=== PATIENT | male | born 1960 | race Caucasian/White ===

== ENCOUNTER 2017-08-27 14:16 | Observation (INO) ==
[2017-08-27 15:24] LABS: Basophils # 0.1 K/mcL (0.0-0.2); Basophils % 1.4 %; Eosinophils # 0.2 K/mcL (0.0-0.6); Hematocrit 35.8 % (37.5-50.1); Hemoglobin 11.1 g/dL (12.9-16.9); Immature Granulocytes % 0.4 % (0-4); Lymphocytes # 0.6 K/mcL (0.6-4.6); Lymphocytes % 11.5 %; Mean Corpuscular Hemoglobin 25.1 pg (28.0-33.3); Mean Platelet Volume 10.2 fL (9.4-12.4); Monocytes # 0.5 K/mcL (0.0-1.3); Monocytes % 10.9 %; Neutrophils # 3.6 K/mcL (1.6-8.9); Platelet Count 117 K/mcL (140-400); Red Blood Count 4.42 M/mcL (4.19-5.50); Red Cell Distribution Width 18.4 % (11.5-14.5); Segmented Neutrophils % 71.8 %
[2017-08-27 15:29] LABS: Prothrombin Time 32.7 Seconds (9.4-12.1)
[2017-08-27 15:32] LABS: Activated Partial Thrombo Time 40.3 Seconds (26.0-36.0)
[2017-08-27 15:41] LABS: Alanine Aminotransferase 14 Units/L (7-52); Albumin 3.8 g/dL (3.5-5.7); Alkaline Phosphatase 137 Units/L (34-104); Aspartate Amino Transferase 23 Units/L (13-39); BUN/Creatinine Ratio 24 (6-26); Bilirubin,Total 1.9 mg/dL (0.3-1.0); Blood Urea Nitrogen 24 mg/dL (6-20); Calcium 8.9 mg/dL (8.6-10.3); Carbon Dioxide 26 mEq/L (23-29); Chloride 103 mEq/L (98-107); Globulin 3.7 g/dL (2.4-3.5); Glucose 273 mg/dL (70-105); Osmolality,Calculated 292 (280-300); Potassium 4.5 mEq/L (3.5-5.1); Sodium 134 mEq/L (136-145); Total Protein 7.5 g/dL (6.4-8.9); eGFR For African Americans > 60 (> 60); eGFR For Non-African Americans > 60 (> 60)
[2017-08-27 15:52] LABS: Bilirubin,Urine Negative (Negative); Blood,Urine Negative (Negative); Clarity,Urine Clear (Clear); Color,Urine Yellow (Yellow); Glucose,Urine (UA) Normal (Normal); Ketones,Urine Negative (Negative); Leukocyte Esterase,Urine Negative (Negative); Nitrite,Urine Negative (Negative); Protein,Urine Negative (Neg-Trace); Specific Gravity,Urine 1.013 (1.010-1.025); Urobilinogen,Urine Normal (Normal)
--- NOTE | 2017-08-27 15:53 | Emergency Department Note ---
Disposition Clinical Impression: Acute retention of urine Ascites Qualifiers: Ascites type: other type Qualified Code(s): R18.8 - Other ascites Abdominal pain Qualifiers: Abdominal location: unspecified location Qualified Code(s): R10.9 - Unspecified abdominal pain Disposition: Admitted As Inpatient Condition: Good Time of Disposition: 19:26 General Adult HPI - General Chief complaint: ED Urogenital-Male Stated complaint: Decreased urine output. Time Seen by Provider: 08/27/17 15:19 Source: patient Limitations: no limitations Nursing Notes Reviewed: Yes Vital Signs Reviewed: Yes - History of Present Illness HPI Narrative: 57-year-old male history of liver cirrhosis, MARK, atrial fibrillation on Coumadin presents an emergency department with abdominal pain, decreased urine output and some shortness of breath. Patient follows gastroenterology previously at [place] and currently at the [facility] with Dr. Alvarado. He is currently not a transplant patient. He is required a paracentesis several months ago. Reports over the past several months his abdomen has been gradually getting larger. He has some associated shortness of breath and reports productive cough. Reports some chest pain. History of CABG x4 with stents, takes Aspirin. Patients currently on Lactulose and Rifaximin. He states every time he urinated she normally has a loose bowel movement because of his diuretic and laxative. He is currently on spironolactone and has noticed decrease urine output over the past 4 to 5 days after being started on Lasix. He denies any fevers. He reports some pressure to his abdomen. Denies any bloody stool, black tarry stool, hemoptysis or hematemesis. He reports a recent colonoscopy and EGD that did not reveal any esophageal varices. Pain Scale: 5 - Related Data Home Medications Medication Instructions Recorded Confirmed Cholestyramine [Cholestyramine] 4 g PO DAILY 08/27/17 08/27/17 Ciprofloxacin HCl [Cipro] 500 mg PO BID 08/27/17 08/27/17 Insulin Glargine,Hum.rec.anlog 30 units SQ HS 08/27/17 08/27/17 [Lantus Solostar] Insulin LISPRO [Humalog] 6 - 12 unit SQ TIDWM 08/27/17 08/27/17 Lactulose 30 ml PO TID PRN 08/27/17 08/27/17 Metoprolol [Lopressor] 12.5 mg PO DAILY 08/27/17 08/27/17 Omeprazole [PriLOSEC] 40 mg PO DAILY 08/27/17 08/27/17 PARoxetine HCl [Paroxetine HCl] 20 mg PO QAM 08/27/17 08/27/17 Rifaximin [Xifaxan] 550 mg PO BID 08/27/17 08/27/17 Trazodone HCl 100 mg PO HS 08/27/17 08/27/17 Warfarin Sodium [Warfarin Sodium] 3 mg PO DAILY 08/27/17 08/27/17 Allergies Allergy/AdvReac Type Severity Reaction Status Date / Time No Known Allergies Allergy Verified 08/27/17 18:24 All systems ED: reviewed and negative except as stated. Review of Systems: As Per HPI Constitutional: Denies: fever, chills ENT ED: Reports: congestion Cardiovascular: Reports: chest pain Respiratory: Reports: cough, dyspnea Gastrointestinal: Reports: abdominal pain, diarrhea. Denies: nausea, vomiting Genitourinary: Reports: urgency. Denies: dysuria, frequency Musculoskeletal: Denies: back pain Past Medical History - Past Medical History Attestation: Yes The following information was validated with the patient. Source: patient Medical history: Reports: cirrhosis, diabetes, GERD, hyperlipidemia, hypertension, myocardial infarction Psychiatric history: Reports: anxiety, depression - Social History Smoking Status: Former smoker Smokeless Tobacco Status: Yes Alcohol use: Reports: none Drug use: Reports: none Physical Exam - General Limitations: no limitations General appearance: alert, in no apparent distress - Head Head exam: atraumatic, normocephalic, normal inspection - Eye Eye exam: Present: normal appearance, PERRL, EOMI, scleral icterus - ENT ENT exam: normal exam, normal oropharynx, mucous membranes moist - Neck Neck exam: Present: normal inspection, full ROM, trachea midline - Chest Chest inspection: Present: normal inspection, symmetric chest wall rise - Respiratory Respiratory exam: Present: normal lung sounds bilaterally - Cardiovascular Cardiovascular exam: Present: regular rate, normal rhythm, normal heart sounds. Absent: systolic murmur, diastolic murmur - Abdominal Exam Abdominal exam: Present: tenderness, distention, ascites (fluid wave). Absent: guarding, rebound, rigidity - Extremities Exam Extremities exam: Present: normal inspection, full ROM, pedal edema (symmetrical ). Absent: tenderness - Neurological Exam Neurological exam: Present: alert, oriented X3 - Psychiatric Psychiatric exam: Present: normal affect, normal mood - Skin Skin exam: Present: warm, dry, intact, other (jaundice). Absent: rash, cyanosis , diaphoresis Course Course Narrative: Patient presents with abdominal distention and decrease urine output. He is reporting some gradual abdominal pressure and tenderness but denies any fevers. His abdomen is distended with diffuse tenderness. He appears jaundic with some sclera ictera. Consideration for spontaneous bacterial peritonitis less likely without fever. His abdomen was much softer after placement of a Reddy catheter. He reports some improvement of his abdominal pressure. He also has chest pain and shortness of breath likely due to distended abdomen. Review of his labs with thrombocytopenia and elevated INR of 3.0 for his warfarin. Consideration for paracentesis however due to coagulopathy will be deferred at this time. Patient is awake alert and oriented. He states he feels a little more confused. He does have some relief after placement of Reddy. His ammonia level was 24. He has not taken any of his lactulose today. His chest x-ray shows some findings with a new pleural effusion on the left. He did report cough but again no fevers. No leukocytosis. Suspect some of his symptoms is purely mechanical but would benefit paracentesis. Impression is abdominal pain, urinary retention, ascites. - Consultations Consultation #1: Patient accepted by on-call hospitalist Dr. Goins for urinary retention, ascites with abdominal pain without fever, shortness of breath and chest pain. Patient has history liver cirrhosis and a distended abdomen. Patient would benefit from paracentesis however his INR is elevated at 3. Patient was given vitamin K to help facilitate with lowering of INR for potential paracentesis. Time: 19:20 Vital Signs Temperature 97.4 F L 08/27/17 14:36 Pulse Rate 77 08/27/17 14:36 Respiratory Rate 22 08/27/17 14:36 Blood Pressure 114/79 08/27/17 14:36 O2 Sat by Pulse Oximetry 93 08/27/17 14:36 Temperature 97.4 F L 08/27/17 14:36 Pulse Rate 75 08/27/17 19:46 Respiratory Rate 20 08/27/17 19:46 Blood Pressure 118/80 08/27/17 19:46 O2 Sat by Pulse Oximetry 95 08/27/17 19:46 Oxygen Delivery Oxygen Delivery Room Air Medical Decision Making - MDM Narrative Medical decision making narrative: Patient was discussed with my attending physician who agrees with ED management and final disposition. They independently evaluated the patient. Please refer to their attestation to this encounter for additional information. This note was generated by [employer] voice recognition software and as a result grammatical or spelling errors may occur using this program. - Medical Records Medical records reviewed: Yes I reviewed the patient's medical records. - Lab Data Lab results reviewed: Yes I reviewed the patient's lab results. Result diagrams: 08/27/17 14:58 08/27/17 14:58 Lab Results 08/27/17 08/27/17 08/27/17 Range/Units 14:58 14:58 14:58 WBC 5.0 (4.3-11.1) K/mcL RBC 4.42 (4.19-5.50) M/mcL Hgb 11.1 L (12.9-16.9) g/dL Hct 35.8 L (37.5-50.1) % MCV 81.0 L (83.0-100.0) fL MCH 25.1 L (28.0-33.3) pg MCHC 31.0 L (31.6-35.5) g/dL RDW 18.4 H (11.5-14.5) % Plt Count 117 L (140-400) K/mcL MPV 10.2 (9.4-12.4) fL Immature Gran % 0.4 (0-4) % Seg Neutrophils % 71.8 % Lymphocytes % 11.5 % Monocytes % 10.9 % Eosinophils % 4.0 % Basophils % 1.4 % Neutrophils # 3.6 (1.6-8.9) K/mcL Lymphocytes # 0.6 (0.6-4.6) K/mcL Monocytes # 0.5 (0.0-1.3) K/mcL Eosinophils # 0.2 (0.0-0.6) K/mcL Basophils # 0.1 (0.0-0.2) K/mcL PT 32.7 H (9.4-12.1) Seconds INR 3.0 APTT 40.3 H (26.0-36.0) Seconds Sodium 134 L (136-145) mEq/L Potassium 4.5 (3.5-5.1) mEq/L Chloride 103 (98-107) mEq/L Carbon Dioxide 26 (23-29) mEq/L BUN 24 H (6-20) mg/dL Creatinine 0.99 (0.70-1.30) mg/dL Est GFR ( Amer) > 60 (> 60) Est GFR (Non-Af Amer) > 60 (> 60) BUN/Creatinine Ratio 24 (6-26) Glucose 273 H (70-105) mg/dL Calculated Osmolality 292 (280-300) Calcium 8.9 (8.6-10.3) mg/dL Total Bilirubin 1.9 H (0.3-1.0) mg/dL AST 23 (13-39) Units/L ALT 14 (7-52) Units/L Alkaline Phosphatase 137 H (34-104) Units/L Ammonia (16-53) mcmol/L Troponin I < 0.03 (< 0.04) ng/mL Serum Total Protein 7.5 (6.4-8.9) g/dL Albumin 3.8 (3.5-5.7) g/dL Globulin 3.7 H (2.4-3.5) g/dL Albumin/Globulin Ratio 1.0 L (1.1-2.2) Urine Color (Yellow) Urine Clarity (Clear) Urine pH (5.0-8.0) pH Units Ur Specific [place] (1.010-1.025) Urine Protein (Neg-Trace) mg/dL Urine Glucose (UA) (Normal) mg/dL Urine Ketones (Negative) mg/dL Urine Blood (Negative) Urine Nitrite (Negative) Urine Bilirubin (Negative) Urine Urobilinogen (Normal) mg/dL Ur Leukocyte Esterase (Negative) Ur Culture Indicated? (NO) 08/27/17 08/27/17 Range/Units 15:39 17:23 WBC (4.3-11.1) K/mcL RBC (4.19-5.50) M/mcL Hgb (12.9-16.9) g/dL Hct (37.5-50.1) % MCV (83.0-100.0) fL MCH (28.0-33.3) pg MCHC (31.6-35.5) g/dL RDW (11.5-14.5) % Plt Count (140-400) K/mcL MPV (9.4-12.4) fL Immature Gran % (0-4) % Seg Neutrophils % % Lymphocytes % % Monocytes % % Eosinophils % % Basophils % % Neutrophils # (1.6-8.9) K/mcL Lymphocytes # (0.6-4.6) K/mcL Monocytes # (0.0-1.3) K/mcL Eosinophils # (0.0-0.6) K/mcL Basophils # (0.0-0.2) K/mcL PT (9.4-12.1) Seconds INR APTT (26.0-36.0) Seconds Sodium (136-145) mEq/L Potassium (3.5-5.1) mEq/L Chloride (98-107) mEq/L Carbon Dioxide (23-29) mEq/L BUN (6-20) mg/dL Creatinine (0.70-1.30) mg/dL Est GFR ( Amer) (> 60) Est GFR (Non-Af Amer) (> 60) BUN/Creatinine Ratio (6-26) Glucose (70-105) mg/dL Calculated Osmolality (280-300) Calcium (8.6-10.3) mg/dL Total Bilirubin (0.3-1.0) mg/dL AST (13-39) Units/L ALT (7-52) Units/L Alkaline Phosphatase (34-104) Units/L Ammonia 24 (16-53) mcmol/L Troponin I (< 0.04) ng/mL Serum Total Protein (6.4-8.9) g/dL Albumin (3.5-5.7) g/dL Globulin (2.4-3.5) g/dL Albumin/Globulin Ratio (1.1-2.2) Urine Color Yellow (Yellow) Urine Clarity Clear (Clear) Urine pH 5.0 (5.0-8.0) pH Units Ur Specific [place] 1.013 (1.010-1.025) Urine Protein Negative (Neg-Trace) mg/dL Urine Glucose (UA) Normal (Normal) mg/dL Urine Ketones Negative (Negative) mg/dL Urine Blood Negative (Negative) Urine Nitrite Negative (Negative) Urine Bilirubin Negative (Negative) Urine Urobilinogen Normal (Normal) mg/dL Ur Leukocyte Esterase Negative (Negative) Ur Culture Indicated? NO (NO) - Radiology Data Radiology results reviewed: Yes I reviewed the patient's radiology results. Chest X-Ray 08/27/17 15:35 IMPRESSION: Right basilar opacity appears similar to prior exam 01/23/2017. This could reflect persistent chronic findings from prior exam with pleural effusion/thickening and atelectasis/scarring or could reflect new acute process with new pleural effusion and atelectasis or infiltrate. Other underlying pathology cannot be excluded. Continued short-term follow-up is recommended and if this persists with appropriate treatment further evaluation with chest CT is recommended. New mild left basilar opacity concerning for small left pleural effusion and associated atelectasis or infiltrate. This can be assessed on follow-up as well. Mild pulmonary vascular congestion without overt pulmonary edema. D/ / 08/27/2017 16:05:50 Emanuel Winston MD / ken Interpreting Provider: Emanuel Winston MD - EKG Data EKG #1 EKG attestation: Yes I reviewed and interpreted this EKG. EKG results narrative: EKG performed 1551 atrial fibrillation 74 beats per minute right axis deviation , right bundle branch block, no ST elevation or depression. Compared to prior EKG performed 06/17/2014 which showed atrial fibrillation. No acute ischemic changes seen. Attestation Statement - Attestation Attestation: I, Wilver Prado, examined this patient and my medical decision-making was reviewed with the TELEMARKETER/PA/Advanced Practice Nurse/Resident Physician. I agree with the documented findings, disposition and treatment plan as described except to the extent set forth below. -year-old male presents emergency Department with concerns of abdominal distention pain. Patient states he has had decreased urinary output over the past 2 days. Patient states he has had urinary decreased urinary output in the past and it was due to infection. Patient denies fever, chills, nausea, vomiting, diarrhea. Patient given Reddy catheter with good output of urine and decrease of abdominal pain. He has a history of MARK and has a significant amount of ascites. Patient states his abdomen is fairly tense causing abdominal pain. He denies recent trauma. He does take Coumadin and has an INR of 3. Patient will likely require a therapeutic abdominal paracentesis. He does not get regular paracenteses performed. Unlikely SBP as he does not have a fever. He does report chest pain and shortness of breath increasing over the past 2-3 days however this is likely secondary to his increased ascites. EKG showed atrial fibrillation with a rate of 74 and a right bundle branch block. Her EKG does Patient was given vitamin K in attempts to decrease his INR and he will be admitted to the hospitalist for further care and evaluation.
[2017-08-27 16:20] LABS: Troponin I < 0.03 ng/mL (< 0.04)
[2017-08-27] MEDS ORDERED: *HR* Phytonadione 5 MG TABLET PO ONE (16:48)
[2017-08-27] MEDS ORDERED: GI Cocktail 40 ML EACH PO ONE (19:57)
[2017-08-27] MEDS ORDERED: Isovue-370 500 ML INFUS..BTL IV ONE (20:15)
[2017-08-27] MEDS ORDERED: Albuterol 2.5 MG/3 ML NEBULIZER IH ONE (20:15)
--- NOTE | 2017-08-27 20:45 | Internal Med History&Physical ---
<Aj Clemens - Last Filed: 08/27/17 21:40> Date of Encounter: 08/27/17 Time of Encounter: 20:05 Internal Medicine - H&P: HPI Chief complaint: trouble urinating Admitted From: Home Plans for Post Hospital Care: Home History of present illness: Mr. Nance is a 57 year old male w/ pmh of MARK/Liver Cirrhosis, CAD w/ CABG in [id number] and 14 [facility]'s with 2 stents, Balanitis xerotica obliterans, penile surgery presents with 2 day hisotry of urinary incontinence and SOB. Patient started having abdominal distension and urine retention last week, on sunday he went to his PCP who diagnosed him with UTI. Patient was started on Cipro. Throughout the weekend the patient has not been able to urinate as well patient started developing worsening SOB and abdominal distension which prompted him to come to the emergency room. In the ED, lutz catheter was placed and patients SOB and abdominal distension improved. Patient states he feels like he has a pinch under his left lower rib cage that is constant and is NOT similar to his previous CAD symptoms. Patient currently denies SOB, other chest pain, nausea, vomiting, confusion, fever, chills. Patient does state his lower extremities feel cold and he's had swelling in his legs recently. 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 He states that out of the 9 members on his team, he is the only one that is currently still alive. Patient retired in 2003, which is when his CAD symptoms first started. He's had CABG at that point, and has since had 14 [facility] with 2 stents. Patients last stent was over a year ago. Patient previously was diagnosed with MARK and liver cirrhosis at the same time around 2003. He is currently not on the transplant list but is being seen at [facility] who is getting patient on the transplant list. Patient denies drug or alcohol use in his life. Patient has had 1 paracentesis back in april. He has off and on confusion, and is on rifaxamin and lactulose. His last bowel movement was an hour ago in [facility] ED. Patient had 1 previous UTI, which lead to local invasion of his prostate. Patient had to have surgery to remove part of his prostate, and he subsequently developed balanitis xerotic obliterans which led him to have surgery to remove parts of his penis. He is followed by Dr. gonzalez. He has not had any UTI issues since. Past Med Surg Social Fam HX - Past Medical History Medical history: cirrhosis, diabetes, GERD, hyperlipidemia, hypertension, myocardial infarction Psychiatric history: anxiety, depression - Social History Smoking Status: Former smoker Smokeless Tobacco Status: Yes Alcohol use: none Drug use: none Internal Medicine - H&P: Meds Cholestyramine [Cholestyramine] 4 g PO DAILY 08/27/17 [History] Ciprofloxacin HCl [Cipro] 500 mg PO BID 08/27/17 [History] Insulin Glargine,Hum.rec.anlog [Lantus Solostar] 30 units SQ HS 08/27/17 [ History] Insulin LISPRO [Humalog] 6 - 12 unit SQ TIDWM 08/27/17 [History] Lactulose 30 ml PO TID PRN 08/27/17 [History] Metoprolol [Lopressor] 12.5 mg PO DAILY 08/27/17 [History] Omeprazole [PriLOSEC] 40 mg PO DAILY 08/27/17 [History] PARoxetine HCl [Paroxetine HCl] 20 mg PO QAM 08/27/17 [History] Rifaximin [Xifaxan] 550 mg PO BID 08/27/17 [History] Trazodone HCl 100 mg PO HS 08/27/17 [History] Warfarin Sodium [Warfarin Sodium] 3 mg PO DAILY 08/27/17 [History] 3 Allergy/AdvReac Type Severity Reaction Status Date / Time No Known Allergies Allergy Verified 08/27/17 18:24 All Systems PM: A 10-system review of systems was performed and is negative for pertinent findings except as documented above in the HPI. - Constitutional Constitutional: no chills, no excessive sweating, no fatigue, no fever(s), no night sweats, no weight gain, no weight loss - EENT Eyes: no change in vision, no discharge, no pain, no photophobia Ears: no ear discharge, no ear pain, no tinnitus Nose, mouth and throat: no dysphagia, no nasal discharge, no neck pain, no sore throat - Cardiovascular Cardiovascular ROS IM: no chest pain, no diaphoresis, no dyspnea, no lightheadedness, no palpitations, no syncope - Respiratory Respiratory: no cough, no dyspnea, no wheezing, no excessive phlegm production - Gastrointestinal Gastrointestinal: bloating, no abdominal pain, no belching, no change in bowel habits, no change in stool character, no coffee ground emesis, no constipation, no diarrhea, no hematemesis, no hematochezia, no melena, no nausea, no vomiting - Musculoskeletal Musculoskeletal ROS IM: no numbness, no tingling - Integumentary Integumentary IM: no rash, no unusual bruising - Neurological Neurological ROS: no confusion, no convulsions, no focal weakness, no numbness, no tingling, no tremor(s) - Hematologic/Lymphatic Hematologic/Lymphatic: no easy bruising - Constitutional Vitals: Temp Pulse Resp BP Pulse Ox 97.4 F L 75 20 118/80 95 08/27/17 14:36 08/27/17 19:46 08/27/17 19:46 08/27/17 19:46 08/27/17 19:46 General appearance: Present: cooperative, A&O X 3, pleasant, no acute distress, answers questions appropriately Exam: Patient is older appearing than age would suggest - Head Head exam: Present: atraumatic, normocephalic - Eye Eye exam: Present: PERRL, conjuntiva pink, sclera anicteric Pupils: Present: PERRL - Neck Neck exam general surgery: Present: supple, trachea midline. Absent: lymphadenopathy - Respiratory Respiratory exam: Absent: accessory muscle use, chest wall tenderness, rales, respiratory distress, rhonchi, wheezes, tachypnea - Cardiovascular Cardiovascular exam: Present: irregular rhythm. Absent: diastolic murmur, gallop, JVD, rubs, +S1, +S2, systolic murmur - GI/Abdominal GI/Abdominal exam: Present: diminished bowel sounds, distended, firm, hepatomegaly (liver is 8 cm below rib cage), hypoactive bowel sounds, normal bowel sounds. Absent: pulsatile mass, rebound, tenderness, no peritoneal signs - Additional comments: clean and healed surgically removed penile organ. - Extremities Exam Extremities exam: Present: pedal edema (1+ BLE), radial pulses palpable and symmetrical. Absent: calf tenderness, cyanotic Additional comments: cold to touch - Neurological Exam Neurological exam: Present: alert, CN II-XII intact, oriented X3, no focal deficits. Absent: altered, pronater drift, facial droop, speech deficit - Skin Skin exam: Present: dry, intact Internal Med - H&P Results - Labs CBC & Chem 7: 08/27/17 14:58 08/27/17 14:58 Labs: Short CBC 08/27/17 Range/Units 14:58 WBC 5.0 (4.3-11.1) K/mcL Hgb 11.1 L (12.9-16.9) g/dL Hct 35.8 L (37.5-50.1) % Plt Count 117 L (140-400) K/mcL Neutrophils # 3.6 (1.6-8.9) K/mcL BMP 08/27/17 14:58 Sodium 134 L Potassium 4.5 Chloride 103 Carbon Dioxide 26 BUN 24 H Creatinine 0.99 Glucose 273 H Calcium 8.9 Cardiac Enzymes 08/27/17 Range/Units 14:58 Troponin I < 0.03 (< 0.04) ng/mL Liver Function 08/27/17 Range/Units 14:58 Total Bilirubin 1.9 H (0.3-1.0) mg/dL AST 23 (13-39) Units/L ALT 14 (7-52) Units/L Alkaline Phosphatase 137 H (34-104) Units/L Albumin 3.8 (3.5-5.7) g/dL Urine 08/27/17 Range/Units 15:39 Urine Color Yellow (Yellow) Urine Clarity Clear (Clear) Urine pH 5.0 (5.0-8.0) pH Units Ur Specific [place] 1.013 (1.010-1.025) Urine Protein Negative (Neg-Trace) mg/dL Urine Glucose (UA) Normal (Normal) mg/dL - Impressions ITS Impressions Chest X-Ray 08/27/17 15:35 IMPRESSION: Right basilar opacity appears similar to prior exam 01/23/2017. This could reflect persistent chronic findings from prior exam with pleural effusion/thickening and atelectasis/scarring or could reflect new acute process with new pleural effusion and atelectasis or infiltrate. Other underlying pathology cannot be excluded. Continued short-term follow-up is recommended and if this persists with appropriate treatment further evaluation with chest CT is recommended. New mild left basilar opacity concerning for small left pleural effusion and associated atelectasis or infiltrate. This can be assessed on follow-up as well. Mild pulmonary vascular congestion without overt pulmonary edema. D/ / 08/27/2017 16:05:50 Emanuel Winston MD / ken Interpreting Provider: Emanuel Winston MD - Assessment and plan (1) Acute retention of urine Current Visit: Yes Status: Acute Assessment and plan: Patient has a history of UTI's with subsequent local infection of Prostate whcih subsequently led him to have Balanitis Xerotica Obliterans and penile organ removal. 2 day hx of urinary retention. Symptoms include SOB, abdominal distension. Symptoms improved after Lutz cath was placed. Patient's U/A was negative in ED, but patient was also treated with Cipro 4 days ago. - Strict I/O - monitor weight - continue lutz management - ct abd/pelvis ordered - urology consulted; Dr Gonzalez who performed the original penectomy was accounting consultant , he recommended that the lutz stay in place until at least sunday, and patient to be started on flomax (2) CAD (coronary artery disease) Current Visit: Yes Status: Acute Assessment and plan: CABG in [id number], 14 [facility]'s w/ 2 stents last over a year ago. Currently asymptomatic, will follow closely and patient will be considered high risk. Qualifiers: Qualified Code(s): I25.10 - Atherosclerotic heart disease of [place] coronary artery without angina pectoris (3) Afib Current Visit: Yes Status: Acute Assessment and plan: currently in afib, most likely secondary to fluid overload. Will treat underlying cause, and continue to closely monitor - continue home Rx for now Qualifiers: Qualified Code(s): I48.91 - Unspecified atrial fibrillation (4) Ascites Current Visit: Yes Status: Acute Assessment and plan: MARK/Liver ascites with history of hepatic encephalopathy. Currently alert and oriented. Ammonia came back WNL, will not use ammonia to follow. AST/ALT not elevated. Patient does have fluid shift on exam. Will continue to follow closely with clinical evaluations. - Clinical serial exams - continue home rifaxamin and lactulose - may need paracentesis during hospitalization but currently not indicated. Qualifiers: Ascites type: other type Qualified Code(s): R18.8 - Other ascites (5) Diabetes Current Visit: Yes Status: Acute Assessment and plan: hold home Rx. started medium SSI. Qualifiers: Qualified Code(s): E11.9 - Type 2 diabetes mellitus without complications; Z79.4 - care home (current) use of insulin (6) Hyperlipidemia Current Visit: Yes Status: Acute Assessment and plan: continue home Rx Qualifiers: Qualified Code(s): E78.5 - Hyperlipidemia, unspecified (7) Chest pain Current Visit: Yes Status: Acute Assessment and plan: chest pain is described as pinch below left rib cage. Pain is dissimilar to previous CAD. Previous CAD was pressure that went from chest up neck and jaw. Due to history, patient will be considered high risk and followed. Qualifiers: Qualified Code(s): R07.9 - Chest pain, unspecified (8) COPD (chronic obstructive pulmonary disease) Current Visit: Yes Status: Acute Assessment and plan: do not believe patient is currently have COPD exacerbation but will provide respiratory support as needed. Qualifiers: Qualified Code(s): J44.9 - Chronic obstructive pulmonary disease, unspecified (9) Hyponatremia Current Visit: Yes Status: Acute Assessment and plan: on admission patient has mild hyponatremia, most likely secondary to diuretic and lactulose use. Will continue to follow. - Time Spent With Patient Total time spent is greater than 50% in coordination of care (as documented) at patient's floor/unit and/or counseling patient: <Nilson Gions P - Last Filed: 08/28/17 05:12> Date of Encounter: 08/27/17 Internal Medicine - H&P: HPI History of present illness: Mr. Nance is a 57 year old male All Systems PM: A 10-system review of systems was performed and is negative for pertinent findings except as documented above in the HPI. - Constitutional Vitals: Temp Pulse Resp BP Pulse Ox 97.6 F 95 20 126/93 98 08/27/17 22:02 08/27/17 22:02 08/27/17 22:02 08/27/17 22:02 08/27/17 23:00 Internal Med - H&P Results - Labs CBC & Chem 7: 08/28/17 03:57 08/28/17 03:57 Labs: Short CBC 08/28/17 Range/Units 03:57 WBC 5.3 (4.3-11.1) K/mcL Hgb 11.4 L (12.9-16.9) g/dL Hct 36.7 L (37.5-50.1) % Plt Count 119 L (140-400) K/mcL Neutrophils # 3.9 (1.6-8.9) K/mcL BMP 08/28/17 03:57 Sodium 137 Potassium 4.2 Chloride 104 Carbon Dioxide 24 BUN 25 H Creatinine 1.03 Glucose 192 H Calcium 9.1 Cardiac Enzymes 08/28/17 Range/Units 03:57 Troponin I < 0.03 (< 0.04) ng/mL Liver Function 08/28/17 Range/Units 03:57 Total Bilirubin 1.9 H (0.3-1.0) mg/dL AST 20 (13-39) Units/L ALT 13 (7-52) Units/L Alkaline Phosphatase 117 H (34-104) Units/L Albumin 3.7 (3.5-5.7) g/dL - Attending Attestation I have seen the patient and performed my own physical examination. I have discussed the case with the resident physician. I agree with the resident physicians plan of care as documented in his history and physical note. Briefly , this is a very pleasant and interesting gentleman who presented to ED with SOB and urinary incontinence/retention. He has a complicated PMH with MARK/ liver cirrhosis, CAD, and BXO s/p penectomy. Last week he had UTI and was placed on Cipro. states that he has a history of prostate abscesses. Lutz was placed in ED with great relief of symptoms. Urology has been consulted tonight and plan was to keep lutz until at least Sunday and start him on flomax. CT abdomen showed moderate ascites and edema. Will add lasix IV 40 mg QD. Monitor strict I&Os and daily weights. We will continue home rifaximin and lactulose. He is feeling better and in no distress at this time. - Assessment and plan (1) Acute retention of urine Current Visit: Yes Status: Acute (2) Ascites Current Visit: Yes Status: Acute Qualifiers: Ascites type: other type Qualified Code(s): R18.8 - Other ascites (3) CAD (coronary artery disease) Current Visit: Yes Status: Acute Qualifiers: Qualified Code(s): I25.10 - Atherosclerotic heart disease of [place] coronary artery without angina pectoris (4) Afib Current Visit: Yes Status: Acute Qualifiers: Qualified Code(s): I48.91 - Unspecified atrial fibrillation (5) Diabetes Current Visit: Yes Status: Acute Qualifiers: Qualified Code(s): E11.9 - Type 2 diabetes mellitus without complications; Z79.4 - terminal worker (current) use of insulin (6) Hyperlipidemia Current Visit: Yes Status: Acute Qualifiers: Qualified Code(s): E78.5 - Hyperlipidemia, unspecified (7) Chest pain Current Visit: Yes Status: Acute Qualifiers: Qualified Code(s): R07.9 - Chest pain, unspecified (8) COPD (chronic obstructive pulmonary disease) Current Visit: Yes Status: Acute Qualifiers: Qualified Code(s): J44.9 - Chronic obstructive pulmonary disease, unspecified (9) Hyponatremia Current Visit: Yes Status: Acute - Time Spent With Patient Total time spent is greater than 50% in coordination of care (as documented) at patient's floor/unit and/or counseling patient:
[2017-08-27] MEDS ORDERED: Naloxone 0.4 MG/ML INJ IVP PRN (21:00)
[2017-08-27] MEDS ORDERED: Lactulose Oral Soln 20 GM/30 ML UDC PO PRN (21:02)
[2017-08-27] MEDS ORDERED: *HR* Dextrose 50 % in Water (Syg) 50 ML SYRINGE IVP PRN (21:04)
[2017-08-27] MEDS ORDERED: Dextrose Gel 15 GM/37.5 ML TUBE PO PRN ×2 (21:04)
[2017-08-27] MEDS ORDERED: D5% in Water 1,000 ML IVC PRN (21:04)
[2017-08-28 04:17] LABS: Basophils # 0.1 K/mcL (0.0-0.2); Basophils % 1.1 %; Eosinophils # 0.2 K/mcL (0.0-0.6); Eosinophils % 2.8 %; Hematocrit 36.7 % (37.5-50.1); Hemoglobin 11.4 g/dL (12.9-16.9); Immature Granulocytes % 0.2 % (0-4); Lymphocytes # 0.7 K/mcL (0.6-4.6); Lymphocytes % 13.1 %; Mean Corpuscular HGB Conc 31.1 g/dL (31.6-35.5); Mean Corpuscular Hemoglobin 25.3 pg (28.0-33.3); Mean Corpuscular Volume 81.6 fL (83.0-100.0); Mean Platelet Volume 9.5 fL (9.4-12.4); Monocytes # 0.5 K/mcL (0.0-1.3); Monocytes % 9.3 %; Neutrophils # 3.9 K/mcL (1.6-8.9); Platelet Count 119 K/mcL (140-400); Red Cell Distribution Width 18.6 % (11.5-14.5); Segmented Neutrophils % 73.5 %
[2017-08-28 04:23] LABS: INR 2.5; Prothrombin Time 27.7 Seconds (9.4-12.1)
[2017-08-28 04:26] LABS: Activated Partial Thrombo Time 37.5 Seconds (26.0-36.0)
[2017-08-28 04:35] LABS: Alanine Aminotransferase 13 Units/L (7-52); Albumin 3.7 g/dL (3.5-5.7); Alkaline Phosphatase 117 Units/L (34-104); Aspartate Amino Transferase 20 Units/L (13-39); BUN/Creatinine Ratio 24 (6-26); Bilirubin,Total 1.9 mg/dL (0.3-1.0); Blood Urea Nitrogen 25 mg/dL (6-20); Calcium 9.1 mg/dL (8.6-10.3); Carbon Dioxide 24 mEq/L (23-29); Chloride 104 mEq/L (98-107); Cholesterol 70 mg/dL (< 200); Globulin 3.8 g/dL (2.4-3.5); Glucose 192 mg/dL (70-105); HDL Cholesterol 23 mg/dL (40-59); LDL Cholesterol,Calculated 35 mg/dL (0-99); Magnesium 1.7 mg/dL (1.6-2.6); Osmolality,Calculated 294 (280-300); Phosphorous 4.5 mg/dL (2.7-4.5); Potassium 4.2 mEq/L (3.5-5.1); Sodium 137 mEq/L (136-145); Total Protein 7.5 g/dL (6.4-8.9); Triglycerides 58 mg/dL (< 150); eGFR For African Americans > 60 (> 60); eGFR For Non-African Americans > 60 (> 60)
[2017-08-28] MEDS ORDERED: Furosemide 40 MG/4 ML VIAL IVP SCH (05:12)
[2017-08-28] MEDS: Insulin LISPRO 300 UNITS/3 ML VIAL SQ SCH ×4 (08:27→21:36)
[2017-08-28] MEDS: Cholestyramine 4 GM POWD.PACK PO SCH (08:27)
--- NOTE | 2017-08-28 09:39 | Electrocardiograph Report ---
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
[2017-08-28] MEDS: Warfarin perPT PO SCH (10:18)
--- NOTE | 2017-08-28 13:35 | Internal Med Progress Note ---
<Serge Duarte - Last Filed: 08/28/17 13:32> Date of Encounter: 08/28/17 Time of Encounter: 13:33 - Assessment and plan (1) Acute retention of urine Current Visit: Yes Status: Acute Assessment and plan: Patient has a history of UTI's with subsequent local infection of Prostate whcih subsequently led him to have Balanitis Xerotica Obliterans and penile organ removal. 2 day hx of urinary retention. Patient has a Reddy catheter in place. Urology consultation and pending evaluation. Continue Flomax. (2) Ascites Current Visit: Yes Status: Acute Assessment and plan: MARK/Liver ascites with history of hepatic encephalopathy. We will reverse INR less than 2 We will perform paracentesis tomorrow. Qualifiers: Ascites type: other type Qualified Code(s): R18.8 - Other ascites (3) CAD (coronary artery disease) Current Visit: Yes Status: Acute Assessment and plan: Patient denies chest pain. Continue metoprolol. Patient is not on statin because of liver disease. We will start him on aspirin. Denies history of bleeding. Qualifiers: Qualified Code(s): I25.10 - Atherosclerotic heart disease of [place] coronary artery without angina pectoris (4) Afib Current Visit: Yes Status: Acute Assessment and plan: currently in afib, stable. - continue home Rx for now Qualifiers: Qualified Code(s): I48.91 - Unspecified atrial fibrillation (5) Diabetes Current Visit: Yes Status: Acute Assessment and plan: Start patient on Levemir 20 units at night. Continue sliding scale insulin. Qualifiers: Diabetes mellitus type: type 2 Diabetes mellitus termite treater insulin use: with [facility] use Diabetes mellitus complication status: with neurologic complications Diabetes mellitus complication detail: with polyneuropathy Qualified Code(s): E11.42 - Type 2 diabetes mellitus with diabetic polyneuropathy; Z79.4 - roasterman (current) use of insulin (6) Hyperlipidemia Current Visit: Yes Status: Acute Assessment and plan: continue home Rx Qualifiers: Qualified Code(s): E78.5 - Hyperlipidemia, unspecified (7) Chest pain Current Visit: Yes Status: Acute Assessment and plan: Resolved. Troponins within normal limits. EKG normal sinus rhythm with no ST-T wave changes. Likely atypical chest pain secondary to abdominal distention from ascites. Qualifiers: Qualified Code(s): R07.9 - Chest pain, unspecified (8) COPD (chronic obstructive pulmonary disease) Current Visit: Yes Status: Chronic Assessment and plan: Not an exacerbation. Qualifiers: COPD type: unspecified COPD Qualified Code(s): J44.9 - Chronic obstructive pulmonary disease, unspecified - Time Spent With Patient Total time spent is greater than 50% in coordination of care (as documented) at patient's floor/unit and/or counseling patient: - Subjective Interval history: Patient reports abdominal distention. He had a small bowel movement this morning. He also reports urinary retention and currently has a Reddy catheter. He reports lower extremity edema. He denies chest pain, shortness of breath, abdominal pain. - Constitutional Vitals: Temp Pulse Resp BP Pulse Ox 98.6 F 72 16 120/81 94 08/28/17 10:57 08/28/17 10:57 08/28/17 10:57 08/28/17 10:57 08/28/17 10:57 General appearance: Present: cooperative, A&O X 3, pleasant, no acute distress, answers questions appropriately - Other Additional findings: General: Pleasant without distress HEENT: Head atraumatic, normocephalic, EOMI, PERRL, neck nontender to palpation , absent lymphadenopathy, Moist Mucous Membranes, absent scleral icterus Heart: Regular rate and rhythm with no murmur, sternal scar status post CABG Lungs: Clear to auscultation bilaterally diminished Abdomen: Soft, distended, diminished bowel sounds. Skin: warm and dry, absent rash Extremities: Bilateral pedal edema asymmetric with more edema on the right. Patient reports this is chronic secondary to removal of saphenous vein for CABG. Neuro: Alert oriented 3 Vascular: Pedal and radial pulses 2 out of 4 Internal Medicine: Result - Labs CBC & Chem 7: 08/28/17 03:57 08/28/17 03:57 Labs: Short CBC 08/28/17 Range/Units 03:57 WBC 5.3 (4.3-11.1) K/mcL Hgb 11.4 L (12.9-16.9) g/dL Hct 36.7 L (37.5-50.1) % Plt Count 119 L (140-400) K/mcL Neutrophils # 3.9 (1.6-8.9) K/mcL BMP 08/28/17 03:57 Sodium 137 Potassium 4.2 Chloride 104 Carbon Dioxide 24 BUN 25 H Creatinine 1.03 Glucose 192 H Calcium 9.1 Cardiac Enzymes 08/28/17 Range/Units 03:57 Troponin I < 0.03 (< 0.04) ng/mL Liver Function 08/28/17 Range/Units 03:57 Total Bilirubin 1.9 H (0.3-1.0) mg/dL AST 20 (13-39) Units/L ALT 13 (7-52) Units/L Alkaline Phosphatase 117 H (34-104) Units/L Albumin 3.7 (3.5-5.7) g/dL - ABG Interpretation ABG results: PT/INR, D-dimer PT 27.7 Seconds (9.4-12.1) H 08/28/17 03:57 Consult Discharge Plan - Plan Referrals: Dangelo Copeland Jr, MD [Primary Care Provider] - <Pritesh Albright H - Last Filed: 08/28/17 15:57> Date of Encounter: 08/28/17 - Assessment and plan (1) Acute retention of urine Current Visit: Yes Status: Acute (2) Ascites Current Visit: Yes Status: Acute Qualifiers: Ascites type: other type Qualified Code(s): R18.8 - Other ascites (3) CAD (coronary artery disease) Current Visit: Yes Status: Acute Qualifiers: Qualified Code(s): I25.10 - Atherosclerotic heart disease of [place] coronary artery without angina pectoris (4) Afib Current Visit: Yes Status: Acute Qualifiers: Qualified Code(s): I48.91 - Unspecified atrial fibrillation (5) Diabetes Current Visit: Yes Status: Acute Qualifiers: Diabetes mellitus type: type 2 Diabetes mellitus [facility] insulin use: with termite treater use Diabetes mellitus complication status: with neurologic complications Diabetes mellitus complication detail: with polyneuropathy Qualified Code(s): E11.42 - Type 2 diabetes mellitus with diabetic polyneuropathy; Z79.4 - intermediate (current) use of insulin (6) Hyperlipidemia Current Visit: Yes Status: Acute Qualifiers: Qualified Code(s): E78.5 - Hyperlipidemia, unspecified (7) Chest pain Current Visit: Yes Status: Acute Qualifiers: Qualified Code(s): R07.9 - Chest pain, unspecified (8) COPD (chronic obstructive pulmonary disease) Current Visit: Yes Status: Chronic Qualifiers: COPD type: unspecified COPD Qualified Code(s): J44.9 - Chronic obstructive pulmonary disease, unspecified - Time Spent With Patient Total time spent is greater than 50% in coordination of care (as documented) at patient's floor/unit and/or counseling patient: - Constitutional Vitals: Temp Pulse Resp BP Pulse Ox 98.6 F 72 16 120/81 94 08/28/17 10:57 08/28/17 10:57 08/28/17 10:57 08/28/17 10:57 08/28/17 10:57 Internal Medicine: Result - Labs CBC & Chem 7: 08/28/17 03:57 08/28/17 03:57 Labs: Short CBC 08/28/17 Range/Units 03:57 WBC 5.3 (4.3-11.1) K/mcL Hgb 11.4 L (12.9-16.9) g/dL Hct 36.7 L (37.5-50.1) % Plt Count 119 L (140-400) K/mcL Neutrophils # 3.9 (1.6-8.9) K/mcL BMP 08/28/17 03:57 Sodium 137 Potassium 4.2 Chloride 104 Carbon Dioxide 24 BUN 25 H Creatinine 1.03 Glucose 192 H Calcium 9.1 Cardiac Enzymes 08/28/17 Range/Units 03:57 Troponin I < 0.03 (< 0.04) ng/mL Liver Function 08/28/17 Range/Units 03:57 Total Bilirubin 1.9 H (0.3-1.0) mg/dL AST 20 (13-39) Units/L ALT 13 (7-52) Units/L Alkaline Phosphatase 117 H (34-104) Units/L Albumin 3.7 (3.5-5.7) g/dL - ABG Interpretation ABG results: PT/INR, D-dimer PT 27.7 Seconds (9.4-12.1) H 08/28/17 03:57 - Attending Attestation respiratory distress due to volume overload from severe ascites and right moderate size pleural effusion Lasix IV paracentesis urinary retention , Reddy I examined this patient and my medical decision-making was reviewed with the Resident Physician. I agree with the documented findings, disposition and treatment plan as described except to the extent set forth below.
--- NOTE | 2017-08-28 16:43 | Urology - Consult Note ---
Date of Encounter: 08/28/17 Time of Encounter: 16:41 - Assessment and Plan (1) Acute retention of urine Current Visit: Yes Status: Acute Assessment and plan: Multiple potential etiologies for the urinary retention including bladder outlet obstruction and neurogenic bladder. I recommend starting tamsulosin which will help patient if this is outlet obstruction. Catheter needs to remain in place for at least 1 week. Ok to discharge with the cath in place. I recommend follow-up in the urology office on Sunday for attempt at voiding trial. If he fails the voiding trial, we will proceed with further workup for a outlet obstruction versus neurogenic bladder. All questions answered. Urology CN:HPI Consult date: 08/28/17 Reason for consult Urology: Other History of present illness: Patient known to the urology service. Last seen a few years ago. Multiple medical issues including liver cirrhosis. Has had symptoms of increasing pelvic pressure, urgency, frequency over the last few days. He was treated for possible UTI but Antibiotics ineffective. Catheter placed on admission to the hospital with return of 800 mL of urine. Significant relief of symptoms. States he feels much better at this time. Significant urology history includes severe BX0 requiring dorsal slit in the office. He has adhesions of the residual skin to his glans but the meatus remained open. Also has a history of a prostate abscess that required unroofing in the past. Past Med Surg Social Fam HX - Past Medical History Medical history: cirrhosis, diabetes, GERD, hyperlipidemia, hypertension, myocardial infarction Psychiatric history: anxiety, depression - Past Surgical History Surgical History: appendectomy, cholecystectomy, coronary bypass (CABG), prostatectomy - Social History Smoking Status: Former smoker Smokeless Tobacco Status: Yes Alcohol use: none Drug use: none - Family History Father Hx Family Cardiac Disorders: Yes Mother Hx Family Cancer: Yes Medications and Allergies Cholestyramine [Cholestyramine] 4 g PO DAILY 08/27/17 [History] Ciprofloxacin HCl [Cipro] 500 mg PO BID 08/27/17 [History] Insulin Glargine,Hum.rec.anlog [Lantus Solostar] 30 units SQ HS 08/27/17 [ History] Insulin LISPRO [Humalog] 6 - 12 unit SQ TIDWM 08/27/17 [History] Lactulose 30 ml PO TID PRN 08/27/17 [History] Metoprolol [Lopressor] 12.5 mg PO DAILY 08/27/17 [History] Omeprazole [PriLOSEC] 40 mg PO DAILY 08/27/17 [History] PARoxetine HCl [Paroxetine HCl] 20 mg PO QAM 08/27/17 [History] Rifaximin [Xifaxan] 550 mg PO BID 08/27/17 [History] Trazodone HCl 100 mg PO HS 08/27/17 [History] Warfarin Sodium [Warfarin Sodium] 3 mg PO DAILY 08/27/17 [History] Spironolactone [Aldactone] 100 mg PO DAILY 08/28/17 [History] 3 Allergy/AdvReac Type Severity Reaction Status Date / Time No Known Allergies Allergy Verified 08/27/17 18:24 Review of Systems - Constitutional fatigue, malaise, no chills, no fever(s) - EENT Nose, mouth and throat: dizziness - Cardiovascular no chest pain - Respiratory no cough - Gastrointestinal abdominal pain, nausea - Genitourinary difficulty urinating - Musculoskeletal back pain - Integumentary unusual bruising - Neurological no confusion - Psychiatric no anxiety - Hematologic/Lymphatic easy bleeding - Allergic/Immunologic no throat swelling Exam Initial Vital Signs Temp Pulse Resp BP Pulse Ox 97.4 F L 77 22 114/79 93 08/27/17 14:36 08/27/17 14:36 08/27/17 14:36 08/27/17 14:36 08/27/17 14:36 - General physical appearance Present: no distress, chronically ill - Eyes Present: PERRL, conjunctiva is clear - ENT Present: normal nares, no hearing loss - Neck Present: no masses, no lymphadenopathy - Respiratory Present: normal respiratory effort - Cardiovascular Cardiovascular exam IM: RRR - Abdomen Abdomen: Present: soft, distended. Absent: masses, suprapubic tenderness - Integumentary Present: erythema - Neurologic Absent: disoriented, confused - Additional Findings Able to visualize urethral meatus but glans is mostly covered by lateral shaft skin with significant adhesions to the side of the glans. 14-[place] Reddy catheter draining clear urine Urology Results - Labs 08/28/17 03:57 08/28/17 03:57 Abnormal lab results Hgb 11.4 g/dL (12.9-16.9) L 08/28/17 03:57 Hct 36.7 % (37.5-50.1) L 08/28/17 03:57 MCV 81.6 fL (83.0-100.0) L 08/28/17 03:57 MCH 25.3 pg (28.0-33.3) L 08/28/17 03:57 MCHC 31.1 g/dL (31.6-35.5) L 08/28/17 03:57 RDW 18.6 % (11.5-14.5) H 08/28/17 03:57 Plt Count 119 K/mcL (140-400) L 08/28/17 03:57 PT 27.7 Seconds (9.4-12.1) H 08/28/17 03:57 APTT 37.5 Seconds (26.0-36.0) H 08/28/17 03:57 BUN 25 mg/dL (6-20) H 08/28/17 03:57 Glucose 192 mg/dL (70-105) H 08/28/17 03:57 Total Bilirubin 1.9 mg/dL (0.3-1.0) H 08/28/17 03:57 Alkaline Phosphatase 117 Units/L (34-104) H 08/28/17 03:57 Globulin 3.8 g/dL (2.4-3.5) H 08/28/17 03:57 Albumin/Globulin Ratio 1.0 (1.1-2.2) L 08/28/17 03:57 HDL Cholesterol 23 mg/dL (40-59) L 08/28/17 03:57 Diabetes panel 08/28/17 Range/Units 03:57 Sodium 137 (136-145) mEq/L Potassium 4.2 (3.5-5.1) mEq/L Chloride 104 (98-107) mEq/L Carbon Dioxide 24 (23-29) mEq/L BUN 25 H (6-20) mg/dL Creatinine 1.03 (0.70-1.30) mg/dL Glucose 192 H (70-105) mg/dL Calcium 9.1 (8.6-10.3) mg/dL AST 20 (13-39) Units/L ALT 13 (7-52) Units/L Alkaline Phosphatase 117 H (34-104) Units/L Albumin 3.7 (3.5-5.7) g/dL Triglycerides 58 (< 150) mg/dL HDL Cholesterol 23 L (40-59) mg/dL Calcium panel 08/28/17 Range/Units 03:57 Calcium 9.1 (8.6-10.3) mg/dL Phosphorus 4.5 (2.7-4.5) mg/dL Albumin 3.7 (3.5-5.7) g/dL Pituitary panel 08/28/17 Range/Units 03:57 Sodium 137 (136-145) mEq/L Potassium 4.2 (3.5-5.1) mEq/L Chloride 104 (98-107) mEq/L Carbon Dioxide 24 (23-29) mEq/L BUN 25 H (6-20) mg/dL Creatinine 1.03 (0.70-1.30) mg/dL Glucose 192 H (70-105) mg/dL Calcium 9.1 (8.6-10.3) mg/dL Adrenal panel 08/28/17 Range/Units 03:57 Sodium 137 (136-145) mEq/L Potassium 4.2 (3.5-5.1) mEq/L Chloride 104 (98-107) mEq/L Carbon Dioxide 24 (23-29) mEq/L BUN 25 H (6-20) mg/dL Creatinine 1.03 (0.70-1.30) mg/dL Glucose 192 H (70-105) mg/dL Calcium 9.1 (8.6-10.3) mg/dL Total Bilirubin 1.9 H (0.3-1.0) mg/dL AST 20 (13-39) Units/L ALT 13 (7-52) Units/L Alkaline Phosphatase 117 H (34-104) Units/L Albumin 3.7 (3.5-5.7) g/dL All other labs normal. Consult Discharge Plan - Plan Referrals: Dangelo Copeland Jr, MD [Primary Care Provider] -
[2017-08-28] MEDS: Furosemide 40 MG/4 ML VIAL IVP SCH (18:06)
[2017-08-28] MEDS: traZODone 50 MG TABLET PO SCH (21:35)
[2017-08-28] MEDS: Insulin DETEMIR 100 UNIT/ML X5UNITS SQ SCH (21:36)
[2017-08-29 04:18] LABS: Basophils # 0.1 K/mcL (0.0-0.2); Basophils % 1.3 %; Eosinophils # 0.3 K/mcL (0.0-0.6); Eosinophils % 4.6 %; Hematocrit 31.3 % (37.5-50.1); Hemoglobin 10.1 g/dL (12.9-16.9); Immature Granulocytes % 0.2 % (0-4); Lymphocytes # 0.7 K/mcL (0.6-4.6); Lymphocytes % 12.6 %; Mean Corpuscular HGB Conc 32.3 g/dL (31.6-35.5); Mean Corpuscular Hemoglobin 26.1 pg (28.0-33.3); Mean Corpuscular Volume 80.9 fL (83.0-100.0); Mean Platelet Volume 9.7 fL (9.4-12.4); Monocytes # 0.6 K/mcL (0.0-1.3); Monocytes % 11.3 %; Neutrophils # 3.8 K/mcL (1.6-8.9); Nucleated Red Blood Cells 0.4 /100 WBC (0); Platelet Count 110 K/mcL (140-400); Red Blood Count 3.87 M/mcL (4.19-5.50); Red Cell Distribution Width 18.2 % (11.5-14.5)
[2017-08-29 04:22] LABS: INR 1.9; Prothrombin Time 20.7 Seconds (9.4-12.1)
[2017-08-29 04:33] LABS: BUN/Creatinine Ratio 26 (6-26); Blood Urea Nitrogen 27 mg/dL (6-20); Calcium 8.7 mg/dL (8.6-10.3); Carbon Dioxide 25 mEq/L (23-29); Chloride 104 mEq/L (98-107); Glucose 117 mg/dL (70-105); Osmolality,Calculated 286 (280-300); Potassium 4.2 mEq/L (3.5-5.1); Sodium 135 mEq/L (136-145); eGFR For African Americans > 60 (> 60); eGFR For Non-African Americans > 60 (> 60)
[2017-08-29] MEDS: Furosemide 40 MG/4 ML VIAL IVP SCH ×2 (09:18→17:19)
[2017-08-29] MEDS: Insulin LISPRO 300 UNITS/3 ML VIAL SQ SCH ×4 (09:18→22:00)
[2017-08-29] MEDS: Aspirin 81 MG TAB.CHEW PO SCH (09:20)
[2017-08-29] MEDS ORDERED: Warfarin perPT PO PRN (09:30)
--- NOTE | 2017-08-29 09:30 | Internal Med Progress Note ---
<Serge Duarte - Last Filed: 08/29/17 09:28> Date of Encounter: 08/29/17 Time of Encounter: 09:29 - Assessment and plan (1) Ascites Current Visit: Yes Status: Acute Assessment and plan: MARK/Liver ascites with history of hepatic encephalopathy. INR 1.9 jparacentesis today no signs of SBP afebrile will d/c antibiotics. continue spironolactone and lasix. 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 2 day hx of urinary retention. Urology recommended leaving Reddy catheter in place until next Sunday when he will follow-up with urology outpatient (3) CAD (coronary artery disease) Current Visit: Yes Status: Chronic Assessment and plan: Patient denies chest pain. Continue metoprolol. Patient is not on statin because of liver disease. continue aspirin Denies history of bleeding. Qualifiers: Coronary Disease-Associated Artery/Lesion type: bypass graft [place] vs. transplanted heart: [place] heart Associated angina: without angina Qualified Code(s): I25.810 - Atherosclerosis of coronary artery bypass graft(s) without angina pectoris (4) Afib Current Visit: Yes Status: Chronic Assessment and plan: currently in afib, stable. - continue home Rx for now Qualifiers: Atrial fibrillation type: chronic Qualified Code(s): I48.2 - Chronic atrial fibrillation (5) Diabetes Current Visit: Yes Status: Chronic Assessment and plan: continue levmir cardiac ada diet Continue sliding scale insulin. Qualifiers: Diabetes mellitus type: type 2 Diabetes mellitus correction insulin use: with middle or intermediate school principal use Diabetes mellitus complication status: with neurologic complications Diabetes mellitus complication detail: with polyneuropathy Qualified Code(s): E11.42 - Type 2 diabetes mellitus with diabetic polyneuropathy; Z79.4 - watermaster (current) use of insulin (6) Hyperlipidemia Current Visit: Yes Status: Chronic Assessment and plan: continue home Rx Qualifiers: Qualified Code(s): E78.5 - Hyperlipidemia, unspecified (7) Chest pain Current Visit: Yes Status: Resolved Assessment and plan: Resolved. Troponins within normal limits. EKG normal sinus rhythm with no ST-T wave changes. Likely atypical chest pain secondary to abdominal distention from ascites. will obtain echocardiogram. Qualifiers: Qualified Code(s): R07.9 - Chest pain, unspecified (8) COPD (chronic obstructive pulmonary disease) Current Visit: Yes Status: Chronic Assessment and plan: Not an exacerbation. Qualifiers: COPD type: unspecified COPD Qualified Code(s): J44.9 - Chronic obstructive pulmonary disease, unspecified (9) Acute respiratory failure with hypoxia Current Visit: Yes Status: Acute Assessment and plan: 2nd to fluid overload in setting of cirrhosis continue supplemental O2, diuretics - Time Spent With Patient Total time spent is greater than 50% in coordination of care (as documented) at patient's floor/unit and/or counseling patient: - Subjective Interval history: Patient's abdomen is still distended unchanged from yesterday. He has good output per Reddy. He reports his shortness of breath is stable but has not improved. He is requiring oxygen still which she does not use at home. He denies chest pain. - Constitutional Vitals: Temp Pulse Resp BP Pulse Ox 97.8 F 72 18 111/86 97 08/29/17 07:00 08/29/17 07:00 08/29/17 07:00 08/29/17 07:00 08/29/17 07:00 General appearance: Present: cooperative, A&O X 3, pleasant, no acute distress, answers questions appropriately - Other Additional findings: General: Pleasant without distress HEENT: Head atraumatic, normocephalic, EOMI, PERRL, neck nontender to palpation , absent lymphadenopathy, Moist Mucous Membranes, absent scleral icterus Heart: Regular rate and rhythm with no murmur, sternal scar status post CABG Lungs: Clear to auscultation bilaterally diminished Abdomen: Soft, distended, diminished bowel sounds. Skin: warm and dry, absent rash Extremities: Bilateral pedal edema asymmetric with more edema on the right. Patient reports this is chronic secondary to removal of saphenous vein for CABG. Neuro: Alert oriented 3 Vascular: Pedal and radial pulses 2 out of 4 Internal Medicine: Result - Labs CBC & Chem 7: 08/29/17 03:39 08/29/17 03:39 Labs: Short CBC 08/29/17 Range/Units 03:39 WBC 5.4 (4.3-11.1) K/mcL Hgb 10.1 L (12.9-16.9) g/dL Hct 31.3 L (37.5-50.1) % Plt Count 110 L (140-400) K/mcL Neutrophils # 3.8 (1.6-8.9) K/mcL BMP 08/29/17 03:39 Sodium 135 L Potassium 4.2 Chloride 104 Carbon Dioxide 25 BUN 27 H Creatinine 1.05 Glucose 117 H Calcium 8.7 - ABG Interpretation ABG results: PT/INR, D-dimer PT 20.7 Seconds (9.4-12.1) H 08/29/17 03:39 Consult Discharge Plan - Plan Referrals: Dangelo Copeland Jr, MD [Primary Care Provider] - <Pritesh Albright H - Last Filed: 08/29/17 13:00> Date of Encounter: 08/29/17 - Assessment and plan (1) Acute retention of urine Current Visit: Yes Status: Acute (2) Ascites Current Visit: Yes Status: Acute Qualifiers: Ascites type: other type Qualified Code(s): R18.8 - Other ascites (3) CAD (coronary artery disease) Current Visit: Yes Status: Chronic Qualifiers: Coronary Disease-Associated Artery/Lesion type: bypass graft [place] vs. transplanted heart: [place] heart Associated angina: without angina Qualified Code(s): I25.810 - Atherosclerosis of coronary artery bypass graft(s) without angina pectoris (4) Afib Current Visit: Yes Status: Chronic Qualifiers: Atrial fibrillation type: chronic Qualified Code(s): I48.2 - Chronic atrial fibrillation (5) Diabetes Current Visit: Yes Status: Chronic Qualifiers: Diabetes mellitus type: type 2 Diabetes mellitus correction insulin use: with correction use Diabetes mellitus complication status: with neurologic complications Diabetes mellitus complication detail: with polyneuropathy Qualified Code(s): E11.42 - Type 2 diabetes mellitus with diabetic polyneuropathy; Z79.4 - watermaster (current) use of insulin (6) Hyperlipidemia Current Visit: Yes Status: Chronic Qualifiers: Qualified Code(s): E78.5 - Hyperlipidemia, unspecified (7) Chest pain Current Visit: Yes Status: Resolved Qualifiers: Qualified Code(s): R07.9 - Chest pain, unspecified (8) COPD (chronic obstructive pulmonary disease) Current Visit: Yes Status: Chronic Qualifiers: COPD type: unspecified COPD Qualified Code(s): J44.9 - Chronic obstructive pulmonary disease, unspecified (9) Acute respiratory failure with hypoxia Current Visit: Yes Status: Acute - Time Spent With Patient Total time spent is greater than 50% in coordination of care (as documented) at patient's floor/unit and/or counseling patient: - Constitutional Vitals: Temp Pulse Resp BP Pulse Ox 98.3 F 71 18 112/84 95 08/29/17 11:00 08/29/17 11:00 08/29/17 11:00 08/29/17 11:00 08/29/17 11:00 Internal Medicine: Result - Labs CBC & Chem 7: 08/29/17 03:39 08/29/17 03:39 Labs: Short CBC 08/29/17 Range/Units 03:39 WBC 5.4 (4.3-11.1) K/mcL Hgb 10.1 L (12.9-16.9) g/dL Hct 31.3 L (37.5-50.1) % Plt Count 110 L (140-400) K/mcL Neutrophils # 3.8 (1.6-8.9) K/mcL BMP 08/29/17 03:39 Sodium 135 L Potassium 4.2 Chloride 104 Carbon Dioxide 25 BUN 27 H Creatinine 1.05 Glucose 117 H Calcium 8.7 - ABG Interpretation ABG results: PT/INR, D-dimer PT 20.7 Seconds (9.4-12.1) H 08/29/17 03:39 - Attending Attestation Acute hypoxic respiratory failure due to volume overload from severe ascites and right moderate size pleural effusion Lasix 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 I agree with the documented findings, disposition and treatment plan as described except to the extent set forth below.
[2017-08-29] MEDS: Warfarin perPT PO SCH (09:31)
[2017-08-29] MEDS: Cholestyramine 4 GM POWD.PACK PO SCH (09:32)
[2017-08-29] MEDS ORDERED: Albumin 25% 25gram/100mL 25 GM/100 ML IV.SOLN IVPB ONE (16:52)
--- NOTE | 2017-08-29 17:00 | Procedure Note ---
Date of procedure: 08/29/17 Pre-op diagnosis: Ascites Post-op diagnosis: same Procedure: Paracentesis Procedure Note INDICATION: Ascites PROCEDURE PUPPY TRAINER: Ryley Padron DO Supervising PHYSICIAN: Manohar Addison DO In Attendance Ultrasound used to boo location: Yes CONSENT: Written consent in chart PROCEDURE SUMMARY: The area was cleansed and draped in usual sterile fashion using chlorhexidine scrub. Anesthesia was achieved locally. The left lower quadrant of the abdomen at the mid-axillary line was prepped and draped in a sterile fashion using chloroprep. A total of 7mL 1% lidocaine was used to numb the skin, soft tissue and peritoneum. The paracentesis catheter was inserted and advanced with negative pressure until clear yellow colored fluid was aspirated. Catheter was advanced and suction was attempted without success. The catheter was removed, New catheter was inserted at the same location with no additional lidocaine until clear yellow fluid was again drawn, and the catheter was again advanced as the needle was removed. The catheter was then connected to the vaccutainer and 5400mL of ascitic fluid were drained. The catheter was removed and minimal leaking was noted. Sterile guaze was applied with pressure bandage to the site of catheter insertion. The patient tolerated the procedure well without any immediate complications. Estimated blood loss was 0mL. Anesthesia: local Surgeon: Ryley Padron Was there an assistant quality manager present: Yes Keypuncher: Manohar dAdison Estimated blood loss (cc): 0 Specimen: Ascitic fluid sent for cell count Pathology: other (Ascitic fluid for cell count sent with nurse) Condition: stable Disposition: floor
[2017-08-29] MEDS: *HR* Warfarin 3 MG TABLET PO SCH (17:19)
[2017-08-29] MEDS: traZODone 50 MG TABLET PO SCH (21:21)
[2017-08-29] MEDS: Insulin DETEMIR 100 UNIT/ML X5UNITS SQ SCH (21:22)
[2017-08-29 21:56] LABS: RBC,Peritoneal Fluid < 0.002 M/mcL
[2017-08-29 23:38] LABS: Appearance of Peritoneal Fl CLEAR (Clear)
[2017-08-30 05:54] LABS: Basophils # 0.1 K/mcL (0.0-0.2); Basophils % 1.1 %; INR 1.8; Immature Platelets 2.8 % (1.1-6.1); Mean Corpuscular Volume 80.1 fL (83.0-100.0); Prothrombin Time 19.1 Seconds (9.4-12.1)
[2017-08-30 06:06] LABS: BUN/Creatinine Ratio 23 (6-26); Blood Urea Nitrogen 26 mg/dL (6-20); Calcium 8.7 mg/dL (8.6-10.3); Carbon Dioxide 29 mEq/L (23-29); Chloride 104 mEq/L (98-107); Glucose 146 mg/dL (70-105); Osmolality,Calculated 291 (280-300); Potassium 4.3 mEq/L (3.5-5.1); Sodium 137 mEq/L (136-145); eGFR For African Americans > 60 (> 60); eGFR For Non-African Americans > 60 (> 60)
[2017-08-30 06:17] LABS: Eosinophils # 0.2 K/mcL (0.0-0.6); Eosinophils % 4.1 %; Hematocrit 30.9 % (37.5-50.1); Hemoglobin 9.8 g/dL (12.9-16.9); Immature Granulocytes % 0.2 % (0-4); Lymphocytes # 0.6 K/mcL (0.6-4.6); Lymphocytes % 14.3 %; Mean Corpuscular HGB Conc 31.7 g/dL (31.6-35.5); Mean Corpuscular Hemoglobin 25.4 pg (28.0-33.3); Mean Platelet Volume 9.5 fL (9.4-12.4); Monocytes # 0.6 K/mcL (0.0-1.3); Monocytes % 12.9 %; Red Blood Count 3.86 M/mcL (4.19-5.50); Red Cell Distribution Width 17.8 % (11.5-14.5); Segmented Neutrophils % 67.4 %
[2017-08-30 06:56] LABS: Platelet Count 99 K/mcL (140-400)
[2017-08-30 06:58] LABS: Anisocytosis 1+ (Not Present); Hypochromasia Present (Not Present); Platelet Estimate Decreased (Normal)
[2017-08-30] MEDS: Insulin LISPRO 300 UNITS/3 ML VIAL SQ SCH ×4 (08:15→22:41)
[2017-08-30] MEDS: Cholestyramine 4 GM POWD.PACK PO SCH (11:37)
[2017-08-30] MEDS: Furosemide 40 MG TABLET PO SCH (11:37)
[2017-08-30] MEDS: Aspirin 81 MG TAB.CHEW PO SCH (11:37)
--- NOTE | 2017-08-30 14:47 | Internal Med Progress Note ---
Date of Encounter: 08/30/17 Time of Encounter: 14:45 - Assessment and plan (1) Ascites Current Visit: Yes Status: Acute Assessment and plan: Respiratory distress secondary to right pleural effusion and severe ascites MARK/Liver ascites with history of hepatic encephalopathy. INR 1.8 5.4 L removed after paracenteses on 08/29/2017 no signs of SBP afebrile No need of antibiotics. continue spironolactone and lasix. 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 2 day hx of urinary retention. Urology recommended leaving Reddy catheter in place until Sunday when he will follow-up with urology outpatient (3) CAD (coronary artery disease) Current Visit: Yes Status: Chronic Assessment and plan: Patient denies chest pain. Continue metoprolol. Patient is not on statin because of liver disease. continue aspirin Denies history of bleeding. Qualifiers: Coronary Disease-Associated Artery/Lesion type: bypass graft [place] vs. transplanted heart: [place] heart Associated angina: without angina Qualified Code(s): I25.810 - Atherosclerosis of coronary artery bypass graft(s) without angina pectoris (4) Afib Current Visit: Yes Status: Chronic Assessment and plan: currently in afib, stable. Continue warfarin Qualifiers: Atrial fibrillation type: chronic Qualified Code(s): I48.2 - Chronic atrial fibrillation (5) Diabetes Current Visit: Yes Status: Chronic Assessment and plan: continue levmir cardiac ada diet Continue sliding scale insulin. Qualifiers: Diabetes mellitus type: type 2 Diabetes mellitus halfway insulin use: with halfway use Diabetes mellitus complication status: with neurologic complications Diabetes mellitus complication detail: with polyneuropathy Qualified Code(s): E11.42 - Type 2 diabetes mellitus with diabetic polyneuropathy; Z79.4 - senior living (current) use of insulin (6) COPD (chronic obstructive pulmonary disease) Current Visit: Yes Status: Chronic Assessment and plan: Not an exacerbation. Qualifiers: COPD type: unspecified COPD Qualified Code(s): J44.9 - Chronic obstructive pulmonary disease, unspecified - Time Spent With Patient Total time spent is greater than 50% in coordination of care (as documented) at patient's floor/unit and/or counseling patient: - Constitutional Vitals: Temp Pulse Resp BP Pulse Ox 97.6 F 78 18 102/80 97 08/30/17 11:52 08/30/17 11:52 08/30/17 11:52 08/30/17 11:52 08/30/17 11:52 General appearance: Present: cooperative, A&O X 3, pleasant, no acute distress, answers questions appropriately - Head Head exam: Present: atraumatic, normocephalic - Eye Eye exam: Present: PERRL, conjuntiva pink, sclera anicteric Pupils: Present: PERRL - Neck Neck exam general surgery: Present: supple, trachea midline. Absent: lymphadenopathy - Respiratory Respiratory exam: Present: decreased breath sounds (Blunted right basilar breath sounds), CTAB. Absent: accessory muscle use, rales, rhonchi, wheezes - Cardiovascular Cardiovascular exam: Present: RRR, +S1, +S2. Absent: diastolic murmur, gallop, rubs, systolic murmur - GI/Abdominal GI/Abdominal exam: Present: distended (Ascites), normal bowel sounds, soft, no peritoneal signs. Absent: tenderness - Extremities Exam Extremities exam: Present: warm, radial pulses palpable and symmetrical. Absent : calf tenderness, cyanotic, pedal edema - Neurological Exam Neurological exam: Present: CN II-XII intact, oriented X3, no focal deficits. Absent: pronater drift, facial droop, speech deficit - Skin Skin exam: Present: dry, intact Additional comments: urethral meatus visualized but glans is mostly covered by lateral shaft skin with significant adhesions to the side of the glans. Reddy catheter in place Internal Medicine: Result - Labs CBC & Chem 7: 08/30/17 05:09 08/30/17 05:09 Labs: Short CBC 08/30/17 Range/Units 05:09 WBC 4.4 (4.3-11.1) K/mcL Hgb 9.8 L (12.9-16.9) g/dL Hct 30.9 L (37.5-50.1) % Plt Count 99 L (140-400) K/mcL Neutrophils # 3.0 (1.6-8.9) K/mcL BMP 08/30/17 05:09 Sodium 137 Potassium 4.3 Chloride 104 Carbon Dioxide 29 BUN 26 H Creatinine 1.13 Glucose 146 H Calcium 8.7 - ABG Interpretation ABG results: PT/INR, D-dimer PT 19.1 Seconds (9.4-12.1) H 08/30/17 05:09 - Impressions Impressions Echocardiogram 08/29/17 09:38 Impressions: LVEF 60%. Indeterminate diastolic function. Atypical septal motion consistent with post-operative status. Normal right ventricular structure and function. Somewhat turbulent, eccentric aortic regurgitation that is probably mild but not optimally seen. Mild-moderate tricuspid regurgitation. Probably mild pulmonary hypertension by TR gradient. IVC is not well visualized. Left Ventricular Wall Motion: Rest Echo Findings All wall segments showed normal motion. Findings: Study Quality * Technically adequate exam. ECG Findings * Atrial fibrillation. Left Ventricle * LVEF 60%. * Indeterminate diastolic function. * Atypical septal motion consistent with post-operative status. * Normal LV chamber size and wall thickness. Right Ventricle * Normal right ventricular structure and function. Left Atrium * Moderately dilated left atrium. Right Atrium * Normal right atrial size. Mitral Valve * Normal mitral valve structure. * No mitral stenosis. * No mitral regurgitation. Aortic Valve * Aortic valve not well visualized. * No aortic stenosis. * Somewhat turbulent, eccentric aortic regurgitation that is probably mild but not optimally seen. Tricuspid Valve * Normal tricuspid valve structure. * Mild-moderate tricuspid regurgitation. Pulmonic Valve * Pulmonic valve is not well visualized. * No pulmonic stenosis. * Trace pulmonic regurgitation. Pulmonary Artery * Pulmonary artery not well visualized. Aorta * Normally sized aortic root. Pericardium * There is no pericardial effusion present. Interatrial Septum * Interatrial septum not well evaluated. IVC * The IVC is not well evaluated. Consult Discharge Plan - Plan Referrals: Dangelo Copeland Jr, MD [Primary Care Provider] -
[2017-08-30] MEDS: *HR* Warfarin 3 MG TABLET PO SCH (17:13)
[2017-08-30] MEDS: traZODone 50 MG TABLET PO SCH (22:41)
[2017-08-30] MEDS: Insulin DETEMIR 100 UNIT/ML X5UNITS SQ SCH (22:41)
[2017-08-31 06:44] LABS: INR 1.6; Prothrombin Time 17.6 Seconds (9.4-12.1)
--- NOTE | 2017-08-31 09:21 | Discharge Summary ---
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 Discharge with lutz cath in place and follow up with Urology on Sunday. Also admitted for Respiratory distress secondary to right sided pleural effusion and ascites. Paracentesis completed. Continue with aldactone 00mg qd and lasix 80mg po qd. Orders not resulted at time of discharge: Pending orders 09/01/17 04:00 PT/INR [Prothrombin Time INR] [COAG] AM 04009/02/17 04:00 PT/INR [Prothrombin Time INR] [COAG] AM 0400 09/03/17 04:00 PT/INR [Prothrombin Time INR] [COAG] AM 040 Date of Encounter: 08/31/17 Time of Encounter: 09:19 - Discharge Diagnosis (1) Acute retention of urine Priority: Primary Status: Acute Assessment and Plan: Presented with 2 day history of urinary retention. 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 Continue with Lutz Catheter in place until Sunday and will follow up with Urology as outpatient. (2) Ascites Priority: Primary Status: Acute Assessment and Plan: Respiratory distress secondary to right pleural effusion and severe ascites. Patient continues to report improved breathing as fluid is removed. MARK/Liver ascites with history of hepatic encephalopathy. INR 1.6 5.4 L removed after paracentesis on 08/29/17. No current signs of sbp. No need for antibiotics Continue with Spironolactone at 100mg qd and Lasix 80mg qd. Qualifiers: Ascites type: other type Qualified Code(s): R18.8 - Other ascites (3) CAD (coronary artery disease) Priority: Secondary Status: Chronic Assessment and Plan: Continue with metoprolol, no current chest pain. Patient is not on statin because of liver disease. Continue aspirin Denies history of bleeding. Qualifiers: Coronary Disease-Associated Artery/Lesion type: bypass graft [place] vs. transplanted heart: [place] heart Associated angina: without angina Qualified Code(s): I25.810 - Atherosclerosis of coronary artery bypass graft(s) without angina pectoris (4) Afib Priority: Secondary Status: Chronic Assessment and Plan: Afib, rate controlled Continue warfarin Qualifiers: Atrial fibrillation type: chronic Qualified Code(s): I48.2 - Chronic atrial fibrillation (5) Diabetes Priority: Secondary Status: Chronic Assessment and Plan: Known history of diabetes. Will continue with home diabetic medications on discharge. 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 Qualifiers: COPD type: unspecified COPD Qualified Code(s): J44.9 - Chronic obstructive pulmonary disease, unspecified Hospital course: Mr. Nance is a 57 year old male with history of MARK/liver cirrhosis, CAD s/p CABG/LHC/stent, balnitis xerotica obliterans, and penile surgery who presented with 2 day history of urinary incontinence, shortness of breath, and abdominal distension. Patient was started on flomax and lutz catheter placed. Urology evaluated patient and recommended continuance of lutz catheter and flomax and to followup as outpatient on Sunday09/03/17 for voiding trial. Patient was also determined to have significant ascites resulting in shortness of breath. Paracentesis completed on 08/29/17 with 5400mL drained. Patient continued to have improvement in breathing and is ready for discharge with changes in medication including increase of lasix to 80mg qd and continued flomax until followup with Urology on Sunday. On day of discharge patient reports doing well and continued improvement in breathing. Patient denies fevers, chills, sweats, nausea, vomiting, chest pain , abdominal pain, changes in bowels or bladder, dysuria, weakness, or loss of sensation. - Time Spent with Patient Total time spent providing and/or coordinating discharge services: - Discharge Medications Prescriptions: Furosemide [Lasix] 80 mg PO DAILY #30 tablet Spironolactone [Aldactone] 100 mg PO DAILY #30 tablet Tamsulosin [Flomax] 0.4 mg PO HS #30 capsule Home Medications: Cholestyramine 4 g PO DAILY 08/27/17 [History] Insulin Glargine,Hum.rec.anlog [Lantus Solostar] 30 units SQ HS 08/27/17 [ History] Insulin LISPRO [Humalog] 6 - 12 unit SQ TIDWM 08/27/17 [History] Lactulose 30 ml PO TID PRN 08/27/17 [History] Metoprolol [Lopressor] 12.5 mg PO DAILY 08/27/17 [History] Omeprazole [PriLOSEC] 40 mg PO DAILY 08/27/17 [History] PARoxetine HCl [Paroxetine HCl] 20 mg PO QAM 08/27/17 [History] Rifaximin [Xifaxan] 550 mg PO BID 08/27/17 [History] Trazodone HCl 100 mg PO HS 08/27/17 [History] Warfarin Sodium 3 mg PO DAILY 08/27/17 [History] Aspirin 81 mg PO DAILY tab.chew 08/31/17 [Rx] Furosemide [Lasix] 80 mg PO DAILY #30 tablet 08/31/17 [Rx] Spironolactone [Aldactone] 100 mg PO DAILY #30 tablet 08/31/17 [Rx] Tamsulosin [Flomax] 0.4 mg PO HS #30 capsule 08/31/17 [Rx] Allergies/Adverse Reactions: 3 Allergy/AdvReac Type Severity Reaction Status Date / Time No Known Allergies Allergy Verified 08/27/17 18:24 Date of admission: 08/27/17 20:06 Primary care physician: Dangelo Copeland Jr, MD Consults: 08/27/17 21:49 Consult to Urology [CONS] Routine Consulting Provider: [facility] [place] Reason for Consult: previous penectomy/acute urinary retention Call Completed: Yes 08/27/17 23:01 Consult to Nutrition [CONS] Routine Comment: Consulting Provider: NUTRITION Reason for Dietary Consult: MST Score Consult to Women Nurse [CONS] Routine Reason for SW Consult: Patient's health has been declining and he may need home health services in the future 08/30/17 14:43 Consult to Occupational Therapy [CONS] Routine Comment: Evaluate, develop and implement POC Reason for Consult: eval Does patient have active BEDREST order?: No Is patient medically & hemodynamically stable?: Yes Patient assessed for mobility or mobilized this visit?: Yes Consult to Physical Therapy [CONS] Routine Comment: Evaluate, develop and implement POC Reason for Consult: eval Does patient have active BEDREST order?: No Is patient medically & hemodynamically stable?: Yes Patient assessed for mobility or mobilized this visit?: Yes Discharging clinician: Trey Freitas) Anticipated date of discharge: 08/31/17 - Constitutional Vitals: Temp Pulse Resp BP Pulse Ox 97.5 F L 65 17 112/78 93 08/31/17 07:32 08/31/17 07:32 08/31/17 07:32 08/31/17 07:32 08/31/17 07:32 General appearance: Present: cooperative, A&O X 3, pleasant, no acute distress, answers questions appropriately - Head Head exam: Present: atraumatic, normal inspection, normocephalic - Eye Eye exam: Present: EOMI, normal appearance, PERRL - ENT ENT exam: Present: mucous membranes moist, normal exam - Respiratory Respiratory exam: Present: CTAB. Absent: rales, respiratory distress, rhonchi, wheezes - Cardiovascular Cardiovascular exam: Present: irregular rhythm, +S1, +S2 - GI/Abdominal GI/Abdominal exam: Present: distended, normal bowel sounds, soft. Absent: tenderness, no peritoneal signs - Additional comments: urethral meatus visualized with adhesions to glans. Lutz catheter in place. - Extremities Exam Extremities exam: Present: full ROM, warm, radial pulses palpable and symmetrical. Absent: pedal edema, tenderness - Skin Skin exam: Present: dry, excoriation (multiple exocriations/skin picking of upper extremities bilaterally, no surroundin erythema.), intact, normal color, warm - Patient Status Disposition: Home, Self-Care Condition: Good Functional capacity at discharge: independent ambulation Overall status at discharge: patient is progressing back to baseline - Discharge Instructions Instructions: Cirrhosis (DC), Cirrhosis (GEN), Urinary Retention in Men (GEN), Lutz Catheter Placement and Care (DC), Lutz Catheter Placement and Care (GEN) , Chronic Obstructive Pulmonary Disease (DC), Abdominal Paracentesis (DC), Ascites (DC), Ascites (GEN), Urinary Leg Bag (GEN) Follow Up With: Dangelo Copeland Jr, MD [Primary Care Provider] - 09/07/17 2:00 pm Omar Gonzalez MD [Partnered Physician] - - Diet and Activity Activity: increase activity as tolerated Diet: advance to your usual diet <Jose RamonPritesh Anderson - Last Filed: 08/31/17 16:22> Date of Encounter: 08/31/17 - Discharge Diagnosis (1) Acute retention of urine Status: Acute (2) Ascites Status: Acute Qualifiers: Ascites type: other type Qualified Code(s): R18.8 - Other ascites (3) CAD (coronary artery disease) Status: Chronic Qualifiers: Coronary Disease-Associated Artery/Lesion type: bypass graft [place] vs. transplanted heart: [place] heart Associated angina: without angina Qualified Code(s): I25.810 - Atherosclerosis of coronary artery bypass graft(s) without angina pectoris (4) Afib Status: Chronic Qualifiers: Atrial fibrillation type: chronic Qualified Code(s): I48.2 - Chronic atrial fibrillation (5) Diabetes Status: Chronic Qualifiers: Diabetes mellitus type: type 2 Diabetes mellitus fdc insulin use: with fdc use Diabetes mellitus complication status: with neurologic complications Diabetes mellitus complication detail: with polyneuropathy Qualified Code(s): E11.42 - Type 2 diabetes mellitus with diabetic polyneuropathy; Z79.4 - senior living (current) use of insulin (6) COPD (chronic obstructive pulmonary disease) Status: Chronic Qualifiers: COPD type: unspecified COPD Qualified Code(s): J44.9 - Chronic obstructive pulmonary disease, unspecified Hospital course: Mr. Nance is a 57 year old male - Time Spent with Patient Total time spent providing and/or coordinating discharge services: Date of admission: 08/27/17 20:06 Primary care physician: Dangelo Copeland Jr, MD Consults: 08/27/17 21:49 Consult to Urology [CONS] Routine Consulting Provider: Urology [place] Reason for Consult: previous penectomy/acute urinary retention Call Completed: Yes 08/27/17 23:01 Consult to Nutrition [CONS] Routine Comment: Consulting Provider: NUTRITION Reason for Dietary Consult: MST Score Consult to Women Nurse [CONS] Routine Reason for SW Consult: Patient's health has been declining and he may need home health services in the future 08/30/17 14:43 Consult to Occupational Therapy [CONS] Routine Comment: Evaluate, develop and implement POC Reason for Consult: eval Does patient have active BEDREST order?: No Is patient medically & hemodynamically stable?: Yes Patient assessed for mobility or mobilized this visit?: Yes Consult to Physical Therapy [CONS] Routine Comment: Evaluate, develop and implement POC Reason for Consult: eval Does patient have active BEDREST order?: No Is patient medically & hemodynamically stable?: Yes Patient assessed for mobility or mobilized this visit?: Yes - Constitutional Vitals: Temp Pulse Resp BP Pulse Ox 98.0 F 79 17 107/85 98 08/31/17 11:01 08/31/17 11:01 08/31/17 11:01 08/31/17 11:01 08/31/17 14:00 - Attending Attestation Acute hypoxic respiratory failure due to volume overload from severe ascites and right moderate size pleural effusion Lasix paracentesis done, 5.4 Lt removed Balanitis xerotica obliterans with urinary retention keep Foly until Urology appointment Flomax time spent: 40 min I examined this patient and my medical decision-making was reviewed with the Resident Physician. I agree with the documented findings, disposition and treatment plan as described except to the extent set forth below.
[2017-08-31 11:04] VITALS: BP 107/85
[2017-08-31] MEDS: Insulin LISPRO 300 UNITS/3 ML VIAL SQ SCH ×2 (12:44→12:49)
[2017-08-31] MEDS: Aspirin 81 MG TAB.CHEW PO SCH (12:45)
[2017-08-31] MEDS: Furosemide 40 MG TABLET PO SCH (12:46)
[2017-08-31] MEDS ORDERED: *HR* Warfarin 5 MG TABLET PO ONE (18:00)
[2017-09-01] MEDS ORDERED: *HR* Warfarin 3 MG TABLET PO SCH (18:00)
== END 2017-08-31 14:17 | disposition home or self-care (01) ==
LOC: EMEROO 14:16 → 2NENU 14:16
PROVIDERS: ADMIT Internal Medicine; ATTEND Family Medicine

== ENCOUNTER 2018-02-02 12:38 | Inpatient (IN) ==
[2018-02-02 13:49] LABS: Basophils # 0.1 K/mcL (0.0-0.2); Basophils % 0.6 %; Eosinophils # 0.1 K/mcL (0.0-0.6); Eosinophils % 0.4 %; Hematocrit 36.7 % (37.5-50.1); Hemoglobin 11.6 g/dL (12.9-16.9); Immature Granulocytes % 0.9 % (0-4); Lymphocytes # 0.5 K/mcL (0.6-4.6); Lymphocytes % 3.3 %; Mean Corpuscular HGB Conc 31.6 g/dL (31.6-35.5); Mean Corpuscular Hemoglobin 26.4 pg (28.0-33.3); Mean Corpuscular Volume 83.6 fL (83.0-100.0); Mean Platelet Volume 9.7 fL (9.4-12.4); Monocytes # 1.5 K/mcL (0.0-1.3); Monocytes % 9.1 %; Neutrophils # 13.8 K/mcL (1.6-8.9); Platelet Count 113 K/mcL (140-400); Red Blood Count 4.39 M/mcL (4.19-5.50); Red Cell Distribution Width 17.1 % (11.5-14.5); Segmented Neutrophils % 85.7 %
[2018-02-02 13:55] LABS: INR 2.9; Prothrombin Time 32.6 Seconds (9.4-12.1)
--- NOTE | 2018-02-02 14:12 | Emergency Department Note ---
Disposition Clinical Impression: Elevated bilirubin Community acquired pneumonia Qualifiers: Laterality: unspecified laterality Qualified Code(s): J18.9 - Pneumonia, un specified organism UTI (urinary tract infection) Qualifiers: Urinary tract infection type: acute cystitis Hematuria presence: with hematuria Qualified Code(s): N30.01 - Acute cystitis with hematuria Diarrhea Qualifiers: Diarrhea type: unspecified type Qualified Code(s): R19.7 - Diarrhea, unspecified Disposition: Admitted As Inpatient Condition: Fair Referrals: Dangelo Copeland Jr, MD [Primary Care Provider] - General Adult HPI - General Chief complaint: ED Shortness of Breath/Dyspnea Stated complaint: MICHELE, Jaundice, weak Time Seen by Provider: 02/02/18 12:50 Source: patient, family Limitations: no limitations Nursing Notes Reviewed: Yes Vital Signs Reviewed: Yes - History of Present Illness HPI Narrative: 57-year-old male with significant past medical history of atrial fibrillation currently on Coumadin and rash presenting to the emergency department for chief complaint of yellowing of skin, difficulty breathing, diarrhea, dizziness and generalized pain. According to family member at bedside patient has been symptomatic for the past 2-3 days. Has had multiple episodes of nonbloody loose, watery stools. Patient also states that he feels like he is holding onto fluid in his lungs. Patient has not had any fevers or abdominal pain at home. Denies chest pain, headache or dizziness. Family member at bedside is concerned that he has hepatic encephalopathy because he has had this before. Last time he was diagnosed patient had a urinary tract infection that caused him to be septic. Pain Scale: 7 - Related Data Home Medications Medication Instructions Recorded Confirmed Cholestyramine 4 g PO DAILY 08/27/17 08/27/17 Insulin Glargine,Hum.rec.anlog 30 units SQ HS 08/27/17 08/27/17 [Lantus Solostar] Insulin LISPRO [Humalog] 6 - 12 unit SQ TIDWM 08/27/17 08/27/17 Lactulose 30 ml PO TID PRN 08/27/17 08/27/17 Metoprolol [Lopressor] 12.5 mg PO DAILY 08/27/17 08/27/17 PARoxetine HCl [Paroxetine HCl] 20 mg PO QAM 08/27/17 08/27/17 Rifaximin [Xifaxan] 550 mg PO BID 08/27/17 08/27/17 Trazodone HCl 100 mg PO HS 08/27/17 08/27/17 Warfarin Sodium 4 mg PO DAILY 08/27/17 08/27/17 Furosemide [Lasix] 40 mg PO BID PRN 02/02/18 02/02/18 Spironolactone [Aldactone] 100 mg PO DAILY PRN 02/02/18 02/02/18 Allergies Allergy/AdvReac Type Severity Reaction Status Date / Time No Known Allergies Allergy Verified 02/02/18 12:48 All systems ED: reviewed and negative except as stated. Constitutional: Denies: fever, chills Eyes: Reports: as per HPI ENT ED: Reports: as per HPI Cardiovascular: Denies: palpitations Respiratory: Reports: dyspnea Gastrointestinal: Reports: nausea, diarrhea. Denies: abdominal pain, vomiting Genitourinary: Reports: as per HPI Musculoskeletal: Reports: as per HPI Integumentary: Denies: rash, abrasion Neurological: Reports: weakness. Denies: numbness, paresthesias Psychiatric: Reports: as per HPI Endocrine: Reports: as per HPI Hematological/Lymphatic: Reports: as per HPI Allergic/Immunologic: Reports: as per HPI Past Medical History - Past Medical History Attestation: Yes The following information was validated with the patient. Medical history: Reports: cirrhosis, diabetes, GERD, hyperlipidemia, hypertension, myocardial infarction Surgical history: Reports: appendectomy, cholecystectomy, coronary bypass (CABG), prostatectomy Psychiatric history: Reports: anxiety, depression - Social History Smoking Status: Former smoker Smokeless Tobacco Status: Yes Alcohol use: Reports: none Drug use: Reports: none Physical Exam - General Limitations: no limitations General appearance: alert, in no apparent distress - Head Head exam: atraumatic, normocephalic, normal inspection - Eye Eye exam: Present: normal appearance. Absent: scleral icterus, conjunctival injection - ENT ENT exam: mucous membranes dry - Neck Neck exam: Present: normal inspection, full ROM. Absent: tenderness, meningismus - Chest Chest inspection: Present: normal inspection, symmetric chest wall rise. Absent: tenderness, rash - Respiratory Respiratory exam: Present: other (Decreased breath sounds bilateral bases) - Cardiovascular Cardiovascular exam: Present: regular rate, normal rhythm, normal heart sounds - Abdominal Exam Abdominal exam: Present: soft, Non-Tender. Absent: distention, guarding, rebound, rigidity - Extremities Exam Extremities exam: Present: normal inspection, full ROM - Neurological Exam Neurological exam: Present: alert, oriented X3 - Psychiatric Psychiatric exam: Present: normal affect, normal mood - Skin Skin exam: Present: warm, intact Course Course Narrative: 57-year-old male presenting for diarrhea, weakness. Family member at bedside states he is mildly more confused than normal. Concern for hepatic encephalopathy. Also concerned for sepsis or infection. At the time will pe rform laboratory analysis including CBC, CMP, lipase, ammonia level, urine analysis and hepatitis panel. Patient is alert and oriented 3 in the room and hemodynamically stable. Disposition will most likely be admission the pending results. Patient agrees with this plan. - Reevaluation(s) Reevaluation #1: Patient's laboratory analysis shows leukocytosis at 16.1, hyponatremia 131, elevated total bilirubin at 3.8 and urine analysis shows positive urinary tract infection. Chest x-ray also concerning for by basilar opacities possibly pneumonia. Due to patient's presentation and multiple comorbidities we will plan to admit the patient for further treatment. We will provide him with one dose of Levaquin in the emergency department to cover pneumonia and UTI. Patient is alert and oriented 3 and remains hemodynamically stable. I spoke with the hospitalist tactical air control party Dr. Renee who would like us to order a CT of abdomen and pelvis but is willing to accept the patient at this time. Patient agrees with this plan. Family member at bedside and agrees as well. Vital Signs Temperature 98.0 F 02/02/18 12:47 Pulse Rate 84 02/02/18 12:47 Respiratory Rate 18 02/02/18 12:47 Blood Pressure 110/74 02/02/18 12:47 O2 Sat by Pulse Oximetry 98 02/02/18 12:47 Temperature 98.0 F 02/02/18 13:01 Pulse Rate 84 02/02/18 13:01 Respiratory Rate 18 02/02/18 13:01 Blood Pressure 110/74 02/02/18 13:01 O2 Sat by Pulse Oximetry 98 02/02/18 13:01 Oxygen Delivery Oxygen Delivery Room Air Medical Decision Making - Lab Data Result diagrams: 02/02/18 13:24 02/02/18 13:24 Lab Results 02/02/18 02/02/18 02/02/18 Range/Units 13:24 13:24 13:24 WBC 16.1 H (4.3-11.1) K/mcL RBC 4.39 (4.19-5.50) M/mcL Hgb 11.6 L (12.9-16.9) g/dL Hct 36.7 L (37.5-50.1) % MCV 83.6 (83.0-100.0) fL MCH 26.4 L (28.0-33.3) pg MCHC 31.6 (31.6-35.5) g/dL RDW 17.1 H (11.5-14.5) % Plt Count 113 L (140-400) K/mcL MPV 9.7 (9.4-12.4) fL Immature Gran % 0.9 (0-4) % Seg Neutrophils % 85.7 % Lymphocytes % 3.3 % Monocytes % 9.1 % Eosinophils % 0.4 % Basophils % 0.6 % Neutrophils # 13.8 H (1.6-8.9) K/mcL Lymphocytes # 0.5 L (0.6-4.6) K/mcL Monocytes # 1.5 H (0.0-1.3) K/mcL Eosinophils # 0.1 (0.0-0.6) K/mcL Basophils # 0.1 (0.0-0.2) K/mcL Platelet Estimate Slight Decrease L (Normal) PT (9.4-12.1) Seconds INR Sodium 131 L (136-145) mEq/L Potassium 4.9 (3.5-5.1) mEq/L Chloride 98 (98-107) mEq/L Carbon Dioxide 23 (23-29) mEq/L BUN 28 H (6-20) mg/dL Creatinine 1.21 (0.70-1.30) mg/dL Est GFR ( Amer) > 60 (> 60) Est GFR (Non-Af Amer) > 60 (> 60) BUN/Creatinine Ratio 23 (6-26) Glucose 225 H (70-105) mg/dL Calculated Osmolality 285 (280-300) Calcium 9.2 (8.6-10.3) mg/dL Total Bilirubin 3.8 H (0.3-1.0) mg/dL Direct Bilirubin 0.6 H (0.0-0.2) mg/dL Indirect Bilirubin 3.2 H (0.0-1.2) mg/dL AST 15 (13-39) Units/L ALT 9 (7-52) Units/L Alkaline Phosphatase 94 (34-104) Units/L Ammonia 32 (16-53) mcmol/L Troponin I 0.03 (< 0.04) ng/mL Serum Total Protein 7.4 (6.4-8.9) g/dL Albumin 4.0 (3.5-5.7) g/dL Globulin 3.4 (2.4-3.5) g/dL Albumin/Globulin Ratio 1.2 (1.1-2.2) Lipase 6 L (11-82) Units/L Urine Color (Yellow) Urine Clarity (Clear) Urine pH (5.0-8.0) pH Units Ur Specific [place] (1.010-1.025) Urine Protein (Neg-Trace) mg/dL Urine Glucose (UA) (Normal) mg/dL Urine Ketones (Negative) mg/dL Urine Blood (Negative) Urine Nitrite (Negative) Urine Bilirubin (Negative) Urine Urobilinogen (Normal) mg/dL Ur Leukocyte Esterase (Negative) Urine Microscopic RBC (0-3) per hpf Urine Microscopic WBC (0-3) per hpf Ur Squamous Epith Cells (None-Few) per lpf Urine Bacteria (None-Few) per hpf Ur Culture Indicated? (NO) Hep Bs Antigen (Nonreactive) 02/02/18 02/02/18 02/02/18 Range/Units 13:24 13:24 14:41 WBC (4.3-11.1) K/mcL RBC (4.19-5.50) M/mcL Hgb (12.9-16.9) g/dL Hct (37.5-50.1) % MCV (83.0-100.0) fL MCH (28.0-33.3) pg MCHC (31.6-35.5) g/dL RDW (11.5-14.5) % Plt Count (140-400) K/mcL MPV (9.4-12.4) fL Immature Gran % (0-4) % Seg Neutrophils % % Lymphocytes % % Monocytes % % Eosinophils % % Basophils % % Neutrophils # (1.6-8.9) K/mcL Lymphocytes # (0.6-4.6) K/mcL Monocytes # (0.0-1.3) K/mcL Eosinophils # (0.0-0.6) K/mcL Basophils # (0.0-0.2) K/mcL Platelet Estimate (Normal) PT 32.6 H (9.4-12.1) Seconds INR 2.9 Sodium (136-145) mEq/L Potassium (3.5-5.1) mEq/L Chloride (98-107) mEq/L Carbon Dioxide (23-29) mEq/L BUN (6-20) mg/dL Creatinine (0.70-1.30) mg/dL Est GFR ( Amer) (> 60) Est GFR (Non-Af Amer) (> 60) BUN/Creatinine Ratio (6-26) Glucose (70-105) mg/dL Calculated Osmolality (280-300) Calcium (8.6-10.3) mg/dL Total Bilirubin (0.3-1.0) mg/dL Direct Bilirubin (0.0-0.2) mg/dL Indirect Bilirubin (0.0-1.2) mg/dL AST (13-39) Units/L ALT (7-52) Units/L Alkaline Phosphatase (34-104) Units/L Ammonia (16-53) mcmol/L Troponin I (< 0.04) ng/mL Serum Total Protein (6.4-8.9) g/dL Albumin (3.5-5.7) g/dL Globulin (2.4-3.5) g/dL Albumin/Globulin Ratio (1.1-2.2) Lipase (11-82) Units/L Urine Color Red A (Yellow) Urine Clarity Turbid A (Clear) Urine pH 5.0 (5.0-8.0) pH Units Ur Specific [place] 1.022 (1.010-1.025) Urine Protein 100 H (Neg-Trace) mg/dL Urine Glucose (UA) Normal (Normal) mg/dL Urine Ketones 15 H (Negative) mg/dL Urine Blood Large H (Negative) Urine Nitrite Positive A (Negative) Urine Bilirubin Moderate H (Negative) Urine Urobilinogen Normal (Normal) mg/dL Ur Leukocyte Esterase Large H (Negative) Urine Microscopic RBC TNTC H (0-3) per hpf Urine Microscopic WBC TNTC H (0-3) per hpf Ur Squamous Epith Cells Moderate H (None-Few) per lpf Urine Bacteria Many H (None-Few) per hpf Ur Culture Indicated? YES A (NO) Hep Bs Antigen Nonreactive (Nonreactive) - EKG Data EKG #1 EKG attestation: Yes I reviewed and interpreted this EKG. EKG results narrative: Atrial fibrillation. Right bundle branch block. 93 beats for minute. QRS 132, QTC 457. No sign of acute ST segment elevation or ischemia. Compared to previous EKG completed on 08/27/2017 no significant changes noted
[2018-02-02 14:14] LABS: Troponin I 0.03 ng/mL (< 0.04)
[2018-02-02 14:15] LABS: Alanine Aminotransferase 9 Units/L (7-52); Albumin/Globulin Ratio 1.2 (1.1-2.2); Alkaline Phosphatase 94 Units/L (34-104); Aspartate Amino Transferase 15 Units/L (13-39); BUN/Creatinine Ratio 23 (6-26); Bilirubin,Direct 0.6 mg/dL (0.0-0.2); Bilirubin,Indirect 3.2 mg/dL (0.0-1.2); Bilirubin,Total 3.8 mg/dL (0.3-1.0); Blood Urea Nitrogen 28 mg/dL (6-20); Calcium 9.2 mg/dL (8.6-10.3); Carbon Dioxide 23 mEq/L (23-29); Chloride 98 mEq/L (98-107); Globulin 3.4 g/dL (2.4-3.5); Glucose 225 mg/dL (70-105); Lipase 6 Units/L (11-82); Osmolality,Calculated 285 (280-300); Potassium 4.9 mEq/L (3.5-5.1); Sodium 131 mEq/L (136-145); Total Protein 7.4 g/dL (6.4-8.9); eGFR For Non-African Americans > 60 (> 60)
[2018-02-02 14:33] LABS: Platelet Estimate Slight Decrease (Normal)
[2018-02-02 14:49] LABS: Bilirubin,Urine Moderate (Negative); Blood,Urine Large (Negative); Clarity,Urine Turbid (Clear); Color,Urine Red (Yellow); Glucose,Urine (UA) Normal (Normal); Ketones,Urine 15 mg/dL (Negative); Leukocyte Esterase,Urine Large (Negative); Nitrite,Urine Positive (Negative); Protein,Urine 100 mg/dL (Neg-Trace); Specific Gravity,Urine 1.022 (1.010-1.025); Urobilinogen,Urine Normal (Normal)
[2018-02-02 14:50] LABS: Bacteria,Urine Many per hpf (None-Few); Squamous Epithelial Cell,Urine Moderate per lpf (None-Few); WBC,Urine TNTC per hpf (0-3)
[2018-02-02] MEDS ORDERED: Levofloxacin 750 MG/150 ML 750 MG/150 ML BAG IVPB ONE (15:03)
[2018-02-02 15:07] LABS: RBC,Urine TNTC per hpf (0-3)
[2018-02-02 15:19] LABS: Hepatitis B Surface Antigen Nonreactive (Nonreactive)
--- NOTE | 2018-02-02 15:39 | Emergency Department Note ---
Disposition Clinical Impression: Elevated bilirubin Community acquired pneumonia Qualifiers: Laterality: unspecified laterality Qualified Code(s): J18.9 - Pneumonia, un specified organism UTI (urinary tract infection) Qualifiers: Urinary tract infection type: acute cystitis Hematuria presence: with hematuria Qualified Code(s): N30.01 - Acute cystitis with hematuria Diarrhea Qualifiers: Diarrhea type: unspecified type Qualified Code(s): R19.7 - Diarrhea, unspecified Disposition: Admitted As Inpatient Condition: Fair Referrals: Dangelo Copeland Jr, MD [Primary Care Provider] - General Adult HPI - General Chief complaint: ED Shortness of Breath/Dyspnea Stated complaint: MICHELE, Jaundice, weak Time Seen by Provider: 02/02/18 12:50 Source: patient, family Limitations: no limitations - History of Present Illness Pain Scale: 7 - Related Data Home Medications Medication Instructions Recorded Confirmed Cholestyramine 4 g PO DAILY PRN 08/27/17 02/02/18 Insulin Glargine,Hum.rec.anlog 30 units SQ HS 08/27/17 02/02/18 [Lantus Solostar] Insulin LISPRO [Humalog] 6 - 12 unit SQ TIDWM 08/27/17 02/02/18 Lactulose 30 ml PO TID PRN 08/27/17 02/02/18 Metoprolol [Lopressor] 12.5 mg PO DAILY 08/27/17 02/02/18 PARoxetine HCl [Paroxetine HCl] 20 mg PO QAM 08/27/17 02/02/18 Rifaximin [Xifaxan] 550 mg PO BID 08/27/17 02/02/18 Trazodone HCl 100 mg PO 08/27/17 02/02/18 Warfarin Sodium 4 mg PO DAILY 08/27/17 02/02/18 Furosemide [Lasix] 40 mg PO BID PRN 02/02/18 02/02/18 Spironolactone [Aldactone] 100 mg PO DAILY PRN 02/02/18 02/02/18 Allergies Allergy/AdvReac Type Severity Reaction Status Date / Time No Known Allergies Allergy Verified 02/02/18 12:48 Constitutional: Denies: fever, chills Eyes: Reports: as per HPI ENT ED: Reports: as per HPI Cardiovascular: Denies: palpitations Respiratory: Reports: dyspnea Gastrointestinal: Reports: nausea, diarrhea. Denies: abdominal pain, vomiting Genitourinary: Reports: as per HPI Musculoskeletal: Reports: as per HPI Integumentary: Denies: rash, abrasion Neurological: Reports: weakness. Denies: numbness, paresthesias Psychiatric: Reports: as per HPI Endocrine: Reports: as per HPI Hematological/Lymphatic: Reports: as per HPI Allergic/Immunologic: Reports: as per HPI Past Medical History - Past Medical History Medical history: Reports: cirrhosis, diabetes, GERD, hyperlipidemia, hypertension, myocardial infarction Surgical history: Reports: appendectomy, cholecystectomy, coronary bypass (CABG), prostatectomy Psychiatric history: Reports: anxiety, depression - Social History Smoking Status: Former smoker Smokeless Tobacco Status: Yes Alcohol use: Reports: none Drug use: Reports: none Physical Exam - General Limitations: no limitations General appearance: alert, in no apparent distress Course Vital Signs Temperature 98.0 F 02/02/18 12:47 Pulse Rate 84 02/02/18 12:47 Respiratory Rate 18 02/02/18 12:47 Blood Pressure 110/74 02/02/18 12:47 O2 Sat by Pulse Oximetry 98 02/02/18 12:47 Temperature 98.0 F 02/02/18 13:01 Pulse Rate 84 02/02/18 13:01 Respiratory Rate 18 02/02/18 13:01 Blood Pressure 110/74 02/02/18 13:01 O2 Sat by Pulse Oximetry 98 02/02/18 13:01 Oxygen Delivery Oxygen Delivery Room Air Medical Decision Making - Lab Data Result diagrams: 02/02/18 13:24 02/02/18 13:24 Lab Results 02/02/18 02/02/18 02/02/18 Range/Units 13:24 13:24 13:24 WBC 16.1 H (4.3-11.1) K/mcL RBC 4.39 (4.19-5.50) M/mcL Hgb 11.6 L (12.9-16.9) g/dL Hct 36.7 L (37.5-50.1) % MCV 83.6 (83.0-100.0) fL MCH 26.4 L (28.0-33.3) pg MCHC 31.6 (31.6-35.5) g/dL RDW 17.1 H (11.5-14.5) % Plt Count 113 L (140-400) K/mcL MPV 9.7 (9.4-12.4) fL Immature Gran % 0.9 (0-4) % Seg Neutrophils % 85.7 % Lymphocytes % 3.3 % Monocytes % 9.1 % Eosinophils % 0.4 % Basophils % 0.6 % Neutrophils # 13.8 H (1.6-8.9) K/mcL Lymphocytes # 0.5 L (0.6-4.6) K/mcL Monocytes # 1.5 H (0.0-1.3) K/mcL Eosinophils # 0.1 (0.0-0.6) K/mcL Basophils # 0.1 (0.0-0.2) K/mcL Platelet Estimate Slight Decrease L (Normal) PT (9.4-12.1) Seconds INR Sodium 131 L (136-145) mEq/L Potassium 4.9 (3.5-5.1) mEq/L Chloride 98 (98-107) mEq/L Carbon Dioxide 23 (23-29) mEq/L BUN 28 H (6-20) mg/dL Creatinine 1.21 (0.70-1.30) mg/dL Est GFR ( Amer) > 60 (> 60) Est GFR (Non-Af Amer) > 60 (> 60) BUN/Creatinine Ratio 23 (6-26) Glucose 225 H (70-105) mg/dL Calculated Osmolality 285 (280-300) Calcium 9.2 (8.6-10.3) mg/dL Total Bilirubin 3.8 H (0.3-1.0) mg/dL Direct Bilirubin 0.6 H (0.0-0.2) mg/dL Indirect Bilirubin 3.2 H (0.0-1.2) mg/dL AST 15 (13-39) Units/L ALT 9 (7-52) Units/L Alkaline Phosphatase 94 (34-104) Units/L Ammonia 32 (16-53) mcmol/L Troponin I 0.03 (< 0.04) ng/mL Serum Total Protein 7.4 (6.4-8.9) g/dL Albumin 4.0 (3.5-5.7) g/dL Globulin 3.4 (2.4-3.5) g/dL Albumin/Globulin Ratio 1.2 (1.1-2.2) Lipase 6 L (11-82) Units/L Urine Color (Yellow) Urine Clarity (Clear) Urine pH (5.0-8.0) pH Units Ur Specific [place] (1.010-1.025) Urine Protein (Neg-Trace) mg/dL Urine Glucose (UA) (Normal) mg/dL Urine Ketones (Negative) mg/dL Urine Blood (Negative) Urine Nitrite (Negative) Urine Bilirubin (Negative) Urine Urobilinogen (Normal) mg/dL Ur Leukocyte Esterase (Negative) Urine Microscopic RBC (0-3) per hpf Urine Microscopic WBC (0-3) per hpf Ur Squamous Epith Cells (None-Few) per lpf Urine Bacteria (None-Few) per hpf Ur Culture Indicated? (NO) Hep Bs Antigen (Nonreactive) 02/02/18 02/02/18 02/02/18 Range/Units 13:24 13:24 14:41 WBC (4.3-11.1) K/mcL RBC (4.19-5.50) M/mcL Hgb (12.9-16.9) g/dL Hct (37.5-50.1) % MCV (83.0-100.0) fL MCH (28.0-33.3) pg MCHC (31.6-35.5) g/dL RDW (11.5-14.5) % Plt Count (140-400) K/mcL MPV (9.4-12.4) fL Immature Gran % (0-4) % Seg Neutrophils % % Lymphocytes % % Monocytes % % Eosinophils % % Basophils % % Neutrophils # (1.6-8.9) K/mcL Lymphocytes # (0.6-4.6) K/mcL Monocytes # (0.0-1.3) K/mcL Eosinophils # (0.0-0.6) K/mcL Basophils # (0.0-0.2) K/mcL Platelet Estimate (Normal) PT 32.6 H (9.4-12.1) Seconds INR 2.9 Sodium (136-145) mEq/L Potassium (3.5-5.1) mEq/L Chloride (98-107) mEq/L Carbon Dioxide (23-29) mEq/L BUN (6-20) mg/dL Creatinine (0.70-1.30) mg/dL Est GFR ( Amer) (> 60) Est GFR (Non-Af Amer) (> 60) BUN/Creatinine Ratio (6-26) Glucose (70-105) mg/dL Calculated Osmolality (280-300) Calcium (8.6-10.3) mg/dL Total Bilirubin (0.3-1.0) mg/dL Direct Bilirubin (0.0-0.2) mg/dL Indirect Bilirubin (0.0-1.2) mg/dL AST (13-39) Units/L ALT (7-52) Units/L Alkaline Phosphatase (34-104) Units/L Ammonia (16-53) mcmol/L Troponin I (< 0.04) ng/mL Serum Total Protein (6.4-8.9) g/dL Albumin (3.5-5.7) g/dL Globulin (2.4-3.5) g/dL Albumin/Globulin Ratio (1.1-2.2) Lipase (11-82) Units/L Urine Color Red A (Yellow) Urine Clarity Turbid A (Clear) Urine pH 5.0 (5.0-8.0) pH Units Ur Specific [place] 1.022 (1.010-1.025) Urine Protein 100 H (Neg-Trace) mg/dL Urine Glucose (UA) Normal (Normal) mg/dL Urine Ketones 15 H (Negative) mg/dL Urine Blood Large H (Negative) Urine Nitrite Positive A (Negative) Urine Bilirubin Moderate H (Negative) Urine Urobilinogen Normal (Normal) mg/dL Ur Leukocyte Esterase Large H (Negative) Urine Microscopic RBC TNTC H (0-3) per hpf Urine Microscopic WBC TNTC H (0-3) per hpf Ur Squamous Epith Cells Moderate H (None-Few) per lpf Urine Bacteria Many H (None-Few) per hpf Ur Culture Indicated? YES A (NO) Hep Bs Antigen Nonreactive (Nonreactive) Attestation Statement - Attestation Attestation: I examined this patient and my medical decision-making was reviewed with the Resident Physician. I agree with the documented findings, disposition and treatment plan as described except to the extent set forth below. 57 year old male presents to the ED with complaints of MICHELE, jaundice and states that this typically happens when he has a UTI. PAstinet has a history of MARK. PAtinet does havea UTI And bilsteral pleaural effusion secondary to opactieis in addditiont to slightly elevated bili with baseline LFTs. Patient will be placed on levaquin and admitted to medicine
[2018-02-02] MEDS ORDERED: Naloxone 0.4 MG/ML INJ IVP PRN (17:17)
[2018-02-02] MEDS ORDERED: Ibuprofen 400 MG TABLET PO PRN (17:17)
[2018-02-02] MEDS ORDERED: Furosemide 40 MG TABLET PO PRN (17:29)
[2018-02-02] MEDS ORDERED: Cholestyramine 4 GM POWD.PACK PO PRN (17:29)
[2018-02-02] MEDS ORDERED: D5% in Water 1,000 ML IVC PRN (17:31)
[2018-02-02] MEDS ORDERED: Dextrose Gel 15 GM/37.5 ML TUBE PO PRN ×2 (17:31)
[2018-02-02] MEDS ORDERED: *HR* Dextrose 50 % in Water (Syg) 50 ML SYRINGE IVP PRN (17:31)
--- NOTE | 2018-02-02 17:45 | Internal Med History&Physical ---
Date of Encounter: 02/02/18 Time of Encounter: 16:45 Internal Medicine - H&P: HPI Chief complaint: Whole body ache Admitted From: Home Plans for Post Hospital Care: Home History of present illness: Mr. Nance is a 57 year old male with PMH of MARK, cirrhosis, DM, HTN, A Fib, CAD s/p CABG and stent, present to ER for whole body ache, nausea, dizziness, urine urgency and SOB for about one week. In recent 2-3 days, pt's noticed he has increased skin yellowish. Pt denies fever, chest pain, vomiting. Pt has chronic runny nose and chronic cough which is not significantly increased. Pt has decreased intake in last week. He has diarrhea as well. In ER, abd CT shows pleural effusion and ascites. UA shows UTI. Pt has mild leukocytosis. He has increased bilirubin level. Pt was admitted for further management. Past Med Surg Social Fam HX - Past Medical History Medical history: cirrhosis, diabetes, GERD, hyperlipidemia, hypertension, myocardial infarction Psychiatric history: anxiety, depression - Past Surgical History Surgical History: appendectomy, cholecystectomy, coronary bypass (CABG), prostatectomy - Social History Smoking Status: Former smoker Smokeless Tobacco Status: Yes Alcohol use: none Drug use: none - Family History Father Hx Family Cardiac Disorders: Yes Mother Hx Family Cancer: Yes Internal Medicine - H&P: Meds Cholestyramine 4 g PO DAILY PRN 08/27/17 [History] Insulin Glargine,Hum.rec.anlog [Lantus Solostar] 30 units SQ HS 08/27/17 [History] Insulin LISPRO [Humalog] 6 - 12 unit SQ TIDWM 08/27/17 [History] Lactulose 30 ml PO TID PRN 08/27/17 [History] Metoprolol [Lopressor] 12.5 mg PO DAILY 08/27/17 [History] PARoxetine HCl [Paroxetine HCl] 20 mg PO QAM 08/27/17 [History] Rifaximin [Xifaxan] 550 mg PO BID 08/27/17 [History] Trazodone HCl 100 mg PO HS 08/27/17 [History] Warfarin Sodium 4 mg PO DAILY 08/27/17 [History] Furosemide [Lasix] 40 mg PO BID PRN 02/02/18 [History] Spironolactone [Aldactone] 100 mg PO DAILY PRN 02/02/18 [History] Allergy/AdvReac Type Severity Reaction Status Date / Time No Known Allergies Allergy Verified 02/02/18 12:48 All Systems PM: A 10-system review of systems was performed and is negative for pertinent findin gs except as documented above in the HPI. - Constitutional Vitals: Temp Pulse Resp BP Pulse Ox 98.0 F 92 18 101/76 93 02/02/18 13:01 02/02/18 16:47 02/02/18 16:47 02/02/18 16:47 02/02/18 16:47 General appearance: Present: A&O X 3, no acute distress, answers questions appropriately Exam: Pt looks lethargic - Head Head exam: Present: atraumatic, normocephalic - Eye Eye exam: Present: PERRL, conjuntiva pink, sclera anicteric Pupils: Present: PERRL - Neck Neck exam general surgery: Present: supple, trachea midline. Absent: lymphadenopathy - Respiratory Respiratory exam: Present: decreased breath sounds (On left side), CTAB. Absent: accessory muscle use, rales, rhonchi, wheezes - Cardiovascular Cardiovascular exam: Present: irregular rhythm, +S1, +S2. Absent: diastolic murmur, gallop, rubs, systolic murmur - GI/Abdominal GI/Abdominal exam: Present: normal bowel sounds, soft, tenderness (diffused tenderness w/o rebound or guarding), no peritoneal signs. Absent: distended - Extremities Exam Extremities exam: Present: warm, radial pulses palpable and symmetrical. Absen t: calf tenderness, cyanotic, pedal edema - Neurological Exam Neurological exam: Present: CN II-XII intact, oriented X3, no focal deficits. Absent: pronater drift, facial droop, speech deficit - Skin Skin exam: Present: dry, intact Internal Med - H&P Results - Labs CBC & Chem 7: 02/02/18 13:24 02/02/18 13:24 Labs: Short CBC 02/02/18 Range/Units 13:24 WBC 16.1 H (4.3-11.1) K/mcL Hgb 11.6 L (12.9-16.9) g/dL Hct 36.7 L (37.5-50.1) % Plt Count 113 L (140-400) K/mcL Neutrophils # 13.8 H (1.6-8.9) K/mcL BMP 02/02/18 13:24 Sodium 131 L Potassium 4.9 Chloride 98 Carbon Dioxide 23 BUN 28 H Creatinine 1.21 Glucose 225 H Calcium 9.2 Cardiac Enzymes 02/02/18 Range/Units 13:24 Troponin I 0.03 (< 0.04) ng/mL Liver Function 02/02/18 Range/Units 13:24 Total Bilirubin 3.8 H (0.3-1.0) mg/dL Direct Bilirubin 0.6 H (0.0-0.2) mg/dL AST 15 (13-39) Units/L ALT 9 (7-52) Units/L Alkaline Phosphatase 94 (34-104) Units/L Albumin 4.0 (3.5-5.7) g/dL Urine 02/02/18 Range/Units 14:41 Urine Color Red A (Yellow) Urine Clarity Turbid A (Clear) Urine pH 5.0 (5.0-8.0) pH Units Ur Specific [place] 1.022 (1.010-1.025) Urine Protein 100 H (Neg-Trace) mg/dL Urine Glucose (UA) Normal (Normal) mg/dL - Impressions ITS Impressions Chest X-Ray 02/02/18 13:04 IMPRESSION: 1. Low lung volumes with persistent bibasilar opacities and bilateral effusions. D/ / 02/02/2018 14:48:45 Hollie Jerry MD / Coby Pelayo Interpreting Provider: Hollie Jerry MD Abdomen/Pelvis CT 02/02/18 15:12 IMPRESSION: 1. Moderate-large bilateral pleural effusions with lower lobe atelectasis. 2. There is moderate ascites and body wall edema. 3. Limited evaluation of the bowel loops due to motion artifact with no evidence of obstruction or perforation. 4. No evidence of significant biliary dilatation. 5. Stable splenomegaly. 6. Stable irregular bladder wall thickening and adjacent fat induration which could relate to chronic cystitis. D/ / 02/02/2018 16:20:43 Zak Perez MD / Coby Pelayo Interpreting Provider: Zak Perez MD - Assessment and plan (1) SBP (spontaneous bacterial peritonitis) Current Visit: Yes Status: Suspected Assessment and plan: Pt has abd tenderness. Hx of cirrhosis. Need to r/o SBP. Pt is on coumadin with INR 2.9, no indicated for immediated paracentesis. Will Empirically start zosyn to cover SBP. (2) DVT prophylaxis Current Visit: Yes Status: Acute Assessment and plan: On coumadin, INR 2.9 (3) CAD (coronary artery disease) Current Visit: No Status: Chronic Assessment and plan: No chest pain, cont home meds Qualifiers: Coronary Disease-Associated Artery/Lesion type: bypass graft [place] vs. transplanted heart: [place] heart Associated angina: without angina Qualified Code(s): I25.810 - Atherosclerosis of coronary artery bypass graft(s) without angina pectoris (4) Afib Current Visit: No Status: Chronic Assessment and plan: HR is well controlled, cont home meds metoprolol and coumadin. Qualifiers: Atrial fibrillation type: chronic Qualified Code(s): I48.2 - Chronic atrial fibrillation (5) Diabetes Current Visit: No Status: Chronic Assessment and plan: Cont basal and SSI coverage. 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 Qualifiers: COPD type: unspecified COPD Qualified Code(s): J44.9 - Chronic obstructive pulmonary disease, unspecified (7) UTI (urinary tract infection) Current Visit: Yes Status: Acute Assessment and plan: UA shows UTI, pt is sick. Placed him on zosyn. Follow up blood/urine culture. Qualifiers: Urinary tract infection type: acute cystitis Hematuria presence: without hematuria Qualified Code(s): N30.00 - Acute cystitis without hematuria (8) Elevated bilirubin Current Visit: Yes Status: Acute Assessment and plan: Possibly due to acute sickness on chronic cirrhosis. Check hepatitis penal to r/o acute hepatitis. F/U daily liver function. (9) Diarrhea Current Visit: Yes Status: Acute Assessment and plan: Etiology undetermined. Pt is on lactulose but stopped now b/o diarrhea. Will check GI penal. Qualifiers: Diarrhea type: unspecified type Qualified Code(s): R19.7 - Diarrhea, unspec ified (10) Dehydration Current Visit: Yes Status: Acute Assessment and plan: Pt has diarrhea, poor intake, looks dry, consider dehydration. However, pt has acsites and pleural effusion. So far no lung crackles or leg edema, Will give careful low rate ivf under close monitoring, plan d/w pt and his [place], agree with the plan. (11) Cirrhosis Current Visit: Yes Status: Acute Assessment and plan: Diagnosed about 3 years ago, considered MARK. Pt plan to see GI specialist in [facility] but not see doctor yet. - Ammonia 32 in ER - Cont rifaxamin, hold lactulose b/o diarrhea - Avoid hepatotoxic meds. - f/u ammonia/liver function Qualifiers: Hepatic cirrhosis type: other cirrhosis Qualified Code(s): K74.69 - Other cirrhosis of liver - Time Spent With Patient Total time spent is greater than 50% in coordination of care (as documented) at patient's floor/unit and/or counseling patient: 40 min Greater than 35 minutes
[2018-02-02] MEDS ORDERED: Warfarin perPT PO PRN (18:00)
[2018-02-02] MEDS ORDERED: Furosemide 40 MG TABLET PO ONE (18:55)
[2018-02-02 20:04] LABS: Adenovirus Not Detected (Not Detect); Bordetella Pertussis Not Detected (Not Detect); Chlamydophila pneumoniae Not Detected (Not Detect); Coronavirus 229E Not Detected (Not Detect); Coronavirus HKU1 Not Detected (Not Detect); Coronavirus NL63 Not Detected (Not Detect); Coronavirus OC43 Not Detected (Not Detect); Human Metapneumovirus Not Detected (Not Detect); Human Rhinovirus/Enterovirus Not Detected (Not Detect); Influenza A Subtype 2009 H1 Not Detected (Not Detect); Influenza A Untypeable Not Detected (Not Detect); Influenza B Not Detected (Not Detect); Mycoplasma pneumoniae Not Detected (Not Detect); Parainfluenza Virus 1 Not Detected (Not Detect); Parainfluenza Virus 2 Not Detected (Not Detect); Parainfluenza Virus 3 Not Detected (Not Detect); Parainfluenza Virus 4 Not Detected (Not Detect); Respiratory Syncytial Virus Not Detected (Not Detect)
[2018-02-02] MEDS ORDERED: *HR* LORazepam 2 MG/ML VIAL IVP ONE (20:20)
[2018-02-02] MEDS: 0.9 % Sodium Chloride 1,000 ML IVC SCH (21:41)
[2018-02-02] MEDS: Insulin LISPRO 300 UNITS/3 ML VIAL SQ SCH (21:42)
[2018-02-02] MEDS: Insulin DETEMIR 100 UNIT/ML X5UNITS SQ SCH (21:42)
[2018-02-02] MEDS: traZODone 50 MG TABLET PO SCH (21:42)
[2018-02-03 00:27] LABS: Adenovirus F 40/41 PCR Not detected (Not detect); Astrovirus PCR Not detected (Not detect); C.difficile Toxin A/B by PCR Not detected (Not detect); Campylobacter by PCR Not detected (Not detect); Cryptosporidium by PCR Not detected (Not detect); Cyclospora cayetanensis PCR Not detected (Not detect); E. coli O157 by PCR Not detected (Not detect); Entamoeba histolytica PCR Not detected (Not detect); Enteroaggregative E.coli(EAEC) Not detected (Not detect); Enteropathogenic E.coli(EPEC) Not detected (Not detect); Enterotoxigenic E.coli (ETEC) Not detected (Not detect); Giardia lamblia PCR Not detected (Not detect); Norovirus GI/GII PCR Not detected (Not detect); Plesiomonas shigelloides PCR Not detected (Not detect); Rotavirus A PCR Not detected (Not detect); Salmonella PCR Not detected (Not detect); Sapovirus PCR Not detected (Not detect); Shig/EnteroinvasiveE coli EIEC Not detected (Not detect); Shigalike tox-prod E coli STEC Not detected (Not detect); Vibrio PCR Not detected (Not detect); Vibrio cholerae PCR Not detected (Not detect); Yersinia enterocolitica PCR Not detected (Not detect)
[2018-02-03] MEDS: Piperacillin/Tazobactam 3.375 GM in 0.9 % Sodium Chloride Mini Bag 100 ML IVPB SCH ×3 (01:08→17:12)
[2018-02-03 04:20] LABS: Mean Corpuscular Hemoglobin 26.4 pg (28.0-33.3)
[2018-02-03 04:22] LABS: Basophils % 0.4 %; Eosinophils # 0.1 K/mcL (0.0-0.6); Eosinophils % 0.7 %; Hematocrit 32.1 % (37.5-50.1); Hemoglobin 10.3 g/dL (12.9-16.9); Immature Platelets 4.3 % (1.1-6.1); Lymphocytes # 0.7 K/mcL (0.6-4.6); Lymphocytes % 5.9 %; Mean Corpuscular HGB Conc 32.1 g/dL (31.6-35.5); Mean Corpuscular Volume 82.3 fL (83.0-100.0); Mean Platelet Volume 9.9 fL (9.4-12.4); Monocytes # 1.2 K/mcL (0.0-1.3); Monocytes % 10.6 %; Red Cell Distribution Width 16.7 % (11.5-14.5); Segmented Neutrophils % 81.4 %
[2018-02-03 04:23] LABS: Platelet Count 88 K/mcL (140-400)
[2018-02-03 04:27] LABS: INR 3.2; Prothrombin Time 36.2 Seconds (9.4-12.1)
[2018-02-03 04:37] LABS: Alanine Aminotransferase 7 Units/L (7-52); Albumin 3.2 g/dL (3.5-5.7); Alkaline Phosphatase 75 Units/L (34-104); Aspartate Amino Transferase 11 Units/L (13-39); BUN/Creatinine Ratio 27 (6-26); Bilirubin,Direct 0.8 mg/dL (0.0-0.2); Bilirubin,Indirect 2.3 mg/dL (0.0-1.2); Bilirubin,Total 3.1 mg/dL (0.3-1.0); Blood Urea Nitrogen 30 mg/dL (6-20); Calcium 8.3 mg/dL (8.6-10.3); Carbon Dioxide 25 mEq/L (23-29); Chloride 102 mEq/L (98-107); Globulin 3.2 g/dL (2.4-3.5); Glucose 157 mg/dL (70-105); Magnesium 1.6 mg/dL (1.6-2.6); Osmolality,Calculated 281 (280-300); Potassium 5.2 mEq/L (3.5-5.1); Sodium 131 mEq/L (136-145); Total Protein 6.4 g/dL (6.4-8.9); eGFR For Non-African Americans > 60 (> 60)
[2018-02-03] MEDS: Insulin LISPRO 300 UNITS/3 ML VIAL SQ SCH ×4 (08:21→21:02)
[2018-02-03 12:22] LABS: INR 3.2; Prothrombin Time 35.9 Seconds (9.4-12.1)
--- NOTE | 2018-02-03 13:08 | Internal Med Progress Note ---
Hospitalist Progress Note - Encounter Date of Encounter: 02/03/18 Time of Encounter: 09:00 - Subjective Interval History: Pt feels better, has good appetite and eating/drinking well. No further N/V/D. No fever overnight. - Exam Vitals: Temp Pulse Resp BP Pulse Ox 98.5 F 75 16 94/60 94 02/03/18 11:22 02/03/18 11:22 02/03/18 11:22 02/03/18 11:22 02/03/18 11:22 Exam: Pt is AAO x 3, in NAD HEENT: NC/AT PERRL Neck: Supple, no JVD Lungs: CTA b/l, no wheezes/crackles Heart: S1S2, irregularly irregular Abd: Soft, NT Ext: no pedal edema Neuro: No focal deficit. - Assessment and Plan (1) SBP (spontaneous bacterial peritonitis) Current Visit: Yes Status: Suspected Assessment and Plan: Improved abd tenderness after abx use. Hx of cirrhosis. Suspect SBP. - Pt is on coumadin with high INR, not indicated for immediated paracentesis. Cont Empirical iv zosyn to cover SBP. - Symptoms improved after treatment. (2) DVT prophylaxis Current Visit: Yes Status: Acute Assessment and Plan: On coumadin (3) CAD (coronary artery disease) Current Visit: No Status: Chronic Assessment and Plan: No chest pain, cont home meds (4) Afib Current Visit: No Status: Chronic Assessment and Plan: HR is well controlled, cont home meds metoprolol and coumadin. (5) Diabetes Current Visit: No Status: Chronic Assessment and Plan: Cont basal and SSI coverage. (6) COPD (chronic obstructive pulmonary disease) Current Visit: No Status: Chronic Assessment and Plan: No wheezing, cont home meds. (7) UTI (urinary tract infection) Current Visit: Yes Status: Acute Assessment and Plan: UA shows UTI. Urine culture shows Gram negative blanca. - Cont iv zosyn, f/u final urine culture report. (8) Elevated bilirubin Current Visit: Yes Status: Acute Assessment and Plan: Possibly due to acute sickness on chronic cirrhosis. AST/ALT remains low, not support acute hepatitis. Bilirubin level trend down today. (9) Diarrhea Current Visit: Yes Status: Acute Assessment and Plan: GI penal done, unremarkable. Diarrhea stopped. Will restart home lactulose. (10) Dehydration Current Visit: Yes Status: Acute Assessment and Plan: Improved. Pt take po hydration well, IVF discontinued. (11) Cirrhosis Current Visit: Yes Status: Acute Assessment and Plan: Diagnosed about 3 years ago, considered MARK. Pt plan to see GI specialist in [facility] but not see doctor yet. - Ammonia remains WNL - Cont rifaxamin, resume lactulose - Avoid hepatotoxic meds. - Time Spent with Patient Total time spent is greater than 50% in coordination of care (as documented) at patient's floor/unit and/or counseling patient: 30 min 25 - 35 minutes Plan of Care Discussed with: patient Internal Medicine: Result - Labs CBC & Chem 7: 02/03/18 04:06 02/03/18 04:06 Labs: Short CBC 02/02/18 02/03/18 Range/Units 13:24 04:06 WBC 16.1 H 11.1 (4.3-11.1) K/mcL Hgb 11.6 L 10.3 L (12.9-16.9) g/dL Hct 36.7 L 32.1 L (37.5-50.1) % Plt Count 113 L 88 L (140-400) K/mcL Neutrophils # 13.8 H 9.0 H (1.6-8.9) K/mcL BMP 02/02/18 02/03/18 13:24 04:06 Sodium 131 L 131 L Potassium 4.9 5.2 H Chloride 98 102 Carbon Dioxide 23 25 BUN 28 H 30 H Creatinine 1.21 1.13 Glucose 225 H 157 H Calcium 9.2 8.3 L Cardiac Enzymes 02/02/18 Range/Units 13:24 Troponin I 0.03 (< 0.04) ng/mL Liver Function 02/02/18 02/03/18 Range/Units 13:24 04:06 Total Bilirubin 3.8 H 3.1 H (0.3-1.0) mg/dL Direct Bilirubin 0.6 H 0.8 H (0.0-0.2) mg/dL AST 15 11 L (13-39) Units/L ALT 9 7 (7-52) Units/L Alkaline Phosphatase 94 75 (34-104) Units/L Albumin 4.0 3.2 L (3.5-5.7) g/dL Urine 02/02/18 Range/Units 14:41 Urine Color Red A (Yellow) Urine Clarity Turbid A (Clear) Urine pH 5.0 (5.0-8.0) pH Units Ur Specific [place] 1.022 (1.010-1.025) Urine Protein 100 H (Neg-Trace) mg/dL Urine Glucose (UA) Normal (Normal) mg/dL - ABG Interpretation ABG results: PT/INR, D-dimer PT 35.9 Seconds (9.4-12.1) H 02/03/18 12:02 - Impressions Impressions Chest X-Ray 02/02/18 13:04 IMPRESSION: 1. Low lung volumes with persistent bibasilar opacities and bilateral effusions. D/ / 02/02/2018 14:48:45 Hollie Jerry MD / Coby Pelayo Interpreting Provider: Hollie Jerry MD Abdomen/Pelvis CT 02/02/18 15:12 IMPRESSION: 1. Moderate-large bilateral pleural effusions with lower lobe atelectasis. 2. There is moderate ascites and body wall edema. 3. Limited evaluation of the bowel loops due to motion artifact with no evidence of obstruction or perforation. 4. No evidence of significant biliary dilatation. 5. Stable splenomegaly. 6. Stable irregular bladder wall thickening and adjacent fat induration which could relate to chronic cystitis. D/ / 02/02/2018 16:20:43 Zak Perez MD / Coby Pelayo Interpreting Provider: Zak Perez MD Consult Discharge Plan - Plan (3) CAD (coronary artery disease) Qualifiers: Coronary Disease-Associated Artery/Lesion type: bypass graft [place] vs. transplanted heart: [place] heart Associated angina: without angina Qualified Code(s): I25.810 - Atherosclerosis of coronary artery bypass graft(s) without angina pectoris (4) Afib Qualifiers: Atrial fibrillation type: chronic Qualified Code(s): I48.2 - Chronic atrial fibrillation (5) Diabetes Qualifiers: Diabetes mellitus type: type 2 Diabetes mellitus longterm insulin use: with longterm use Diabetes mellitus complication status: with neurologic complications Diabetes mellitus complication detail: with polyneuropathy Qualified Code(s): E11.42 - Type 2 diabetes mellitus with diabetic polyneuropathy; Z79.4 - longterm (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
[2018-02-03] MEDS: 0.9 % Sodium Chloride 1,000 ML IVC SCH (19:23)
[2018-02-03] MEDS: traZODone 50 MG TABLET PO SCH (20:48)
[2018-02-03] MEDS: Lactulose Oral Soln 20 GM/30 ML UDC PO SCH (20:48)
[2018-02-03] MEDS: Insulin DETEMIR 100 UNIT/ML X5UNITS SQ SCH (20:48)
[2018-02-03] MEDS ORDERED: Lactulose Oral Soln 20 GM/30 ML UDC PO SCH (21:00)
[2018-02-04] MEDS: Piperacillin/Tazobactam 3.375 GM in 0.9 % Sodium Chloride Mini Bag 100 ML IVPB SCH ×3 (00:48→18:12)
[2018-02-04 05:48] LABS: Hepatitis A Antibody IgM Nonreactive (Nonreactive); Hepatitis C Virus Antibody Nonreactive (Nonreactive)
[2018-02-04 06:08] LABS: Eosinophils % 4.3 %; INR 2.7; Prothrombin Time 30.9 Seconds (9.4-12.1)
[2018-02-04 06:10] LABS: Basophils # 0.1 K/mcL (0.0-0.2); Eosinophils # 0.3 K/mcL (0.0-0.6); Hematocrit 30.7 % (37.5-50.1); Hemoglobin 9.8 g/dL (12.9-16.9); Immature Granulocytes % 0.5 % (0-4); Immature Platelets 4.9 % (1.1-6.1); Lymphocytes # 0.5 K/mcL (0.6-4.6); Lymphocytes % 8.3 %; Mean Corpuscular HGB Conc 31.9 g/dL (31.6-35.5); Mean Corpuscular Hemoglobin 26.6 pg (28.0-33.3); Mean Corpuscular Volume 83.2 fL (83.0-100.0); Mean Platelet Volume 9.7 fL (9.4-12.4); Monocytes # 0.7 K/mcL (0.0-1.3); Monocytes % 11.4 %; Neutrophils # 4.4 K/mcL (1.6-8.9); Red Blood Count 3.69 M/mcL (4.19-5.50); Red Cell Distribution Width 16.8 % (11.5-14.5); Segmented Neutrophils % 74.5 %
[2018-02-04 06:13] LABS: Platelet Count 84 K/mcL (140-400)
[2018-02-04 06:21] LABS: Alanine Aminotransferase 6 Units/L (7-52); Albumin 3.3 g/dL (3.5-5.7); Albumin/Globulin Ratio 1.1 (1.1-2.2); Alkaline Phosphatase 72 Units/L (34-104); Aspartate Amino Transferase 11 Units/L (13-39); BUN/Creatinine Ratio 26 (6-26); Bilirubin,Direct 0.8 mg/dL (0.0-0.2); Bilirubin,Total 2.8 mg/dL (0.3-1.0); Blood Urea Nitrogen 36 mg/dL (6-20); Calcium 8.7 mg/dL (8.6-10.3); Carbon Dioxide 27 mEq/L (23-29); Chloride 104 mEq/L (98-107); Globulin 2.9 g/dL (2.4-3.5); Glucose 83 mg/dL (70-105); Osmolality,Calculated 287 (280-300); Potassium 4.6 mEq/L (3.5-5.1); Sodium 135 mEq/L (136-145); Total Protein 6.2 g/dL (6.4-8.9); eGFR For Non-African Americans 53 (> 60)
[2018-02-04 06:36] LABS: Hepatitis B Core IgM Nonreactive (Nonreactive)
[2018-02-04] MEDS: Insulin LISPRO 300 UNITS/3 ML VIAL SQ SCH ×4 (07:43→22:49)
[2018-02-04] MEDS: Lactulose Oral Soln 20 GM/30 ML UDC PO SCH (09:17)
[2018-02-04] MEDS ORDERED: Ondansetron 4 MG/2 ML VIAL IVP PRN (14:54)
[2018-02-04] MEDS: Silvasorb 44.4 ML TUBE TP SCH (15:00)
--- NOTE | 2018-02-04 16:18 | Internal Med Progress Note ---
Hospitalist Progress Note - Encounter Date of Encounter: 02/04/18 Time of Encounter: 09:00 - Subjective Interval History: Pt is awake, alert, has non productive cough, state having chronic choking b/o esophageal varicosis. Has mild nausea after going to bathroom. No fever overnight. - Exam Vitals: Temp Pulse Resp BP Pulse Ox 97 F L 86 15 101/65 97 02/04/18 14:16 02/04/18 14:16 02/04/18 14:16 02/04/18 14:16 02/04/18 14:16 Exam: Pt is AAO x 3, in NAD HEENT: NC/AT PERRL Neck: Supple, no JVD Lungs: CTA b/l, no wheezes/crackles Heart: S1S2, irregularly irregular Abd: Soft, NT Ext: no pedal edema Neuro: No focal deficit. - Assessment and Plan (1) SBP (spontaneous bacterial peritonitis) Current Visit: Yes Status: Suspected Assessment and Plan: No further abd tenderness after abx use. - Cont Empirical iv zosyn to cover SBP. - Symptoms improved after treatment. (2) DVT prophylaxis Current Visit: Yes Status: Acute Assessment and Plan: On coumadin (3) CAD (coronary artery disease) Current Visit: No Status: Chronic Assessment and Plan: No chest pain, cont home meds (4) Afib Current Visit: No Status: Chronic Assessment and Plan: HR is well controlled, cont home meds metoprolol and coumadin. (5) Diabetes Current Visit: No Status: Chronic Assessment and Plan: Cont basal and SSI coverage. (6) COPD (chronic obstructive pulmonary disease) Current Visit: No Status: Chronic Assessment and Plan: No wheezing, cont home meds. Has dry cough, add cough syrup. (7) UTI (urinary tract infection) Current Visit: Yes Status: Acute Assessment and Plan: UA shows UTI. Urine culture shows E Coli - Cont iv zosyn, f/u final urine culture report for sensitivity. (8) Elevated bilirubin Current Visit: Yes Status: Acute Assessment and Plan: Possibly due to acute sickness on chronic cirrhosis. AST/ALT remains low, not support acute hepatitis. Bilirubin level trend down now. (9) Diarrhea Current Visit: Yes Status: Acute Assessment and Plan: GI penal done, unremarkable. Diarrhea stopped. Will keep lactulose PRN to maintain 2-3 BMs a day. (10) Dehydration Current Visit: Yes Status: Acute Assessment and Plan: Improved. Pt take po hydration well, IVF discontinued. (11) Cirrhosis Current Visit: Yes Status: Acute Assessment and Plan: Diagnosed about 3 years ago, considered MARK. Pt plan to see GI specialist in [facility] but not see doctor yet. - Ammonia remains WNL - Cont rifaxamin, resume lactulose as needed. - Avoid hepatotoxic meds. DVT Prophylaxis: On coumadin - Time Spent with Patient Total time spent is greater than 50% in coordination of care (as documented) at patient's floor/unit and/or counseling patient: 30 min 25 - 35 minutes Plan of Care Discussed with: patient Internal Medicine: Result - Labs CBC & Chem 7: 02/04/18 05:47 02/04/18 05:47 Labs: Short CBC 02/04/18 Range/Units 05:47 WBC 5.9 (4.3-11.1) K/mcL Hgb 9.8 L (12.9-16.9) g/dL Hct 30.7 L (37.5-50.1) % Plt Count 84 L (140-400) K/mcL Neutrophils # 4.4 (1.6-8.9) K/mcL BMP 02/04/18 05:47 Sodium 135 L Potassium 4.6 Chloride 104 Carbon Dioxide 27 BUN 36 H Creatinine 1.38 H Glucose 83 Calcium 8.7 Liver Function 02/04/18 Range/Units 05:47 Total Bilirubin 2.8 H (0.3-1.0) mg/dL Direct Bilirubin 0.8 H (0.0-0.2) mg/dL AST 11 L (13-39) Units/L ALT 6 L (7-52) Units/L Alkaline Phosphatase 72 (34-104) Units/L Albumin 3.3 L (3.5-5.7) g/dL - ABG Interpretation ABG results: PT/INR, D-dimer PT 30.9 Seconds (9.4-12.1) H 02/04/18 05:47 Consult Discharge Plan - Plan Referrals: Dangelo Copeland Jr, MD [Primary Care Provider] - (3) CAD (coronary artery disease) Qualifiers: Coronary Disease-Associated Artery/Lesion type: bypass graft [place] vs. transplanted heart: [place] heart Associated angina: without angina Qualified Code(s): I25.810 - Atherosclerosis of coronary artery bypass graft(s) without angina pectoris (4) Afib Qualifiers: Atrial fibrillation type: chronic Qualified Code(s): I48.2 - Chronic atrial fibrillation (5) Diabetes Qualifiers: Diabetes mellitus type: type 2 Diabetes mellitus prison insulin use: with intermediate frame tender use Diabetes mellitus complication status: with neurologic complications Diabetes mellitus complication detail: with polyneuropathy Qualified Code(s): E11.42 - Type 2 diabetes mellitus with diabetic polyneuropathy; Z79.4 - jail (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
[2018-02-04] MEDS ORDERED: Lactulose Oral Soln 20 GM/30 ML UDC PO PRN (16:22)
[2018-02-04] MEDS ORDERED: *HR* Warfarin 2 MG TABLET PO ONE (18:00)
[2018-02-04] MEDS: traZODone 50 MG TABLET PO SCH (22:48)
[2018-02-04] MEDS: Insulin DETEMIR 100 UNIT/ML X5UNITS SQ SCH (22:49)
[2018-02-04] MEDS ORDERED: Furosemide 20 MG TABLET PO ONE (23:05)
[2018-02-05] MEDS: Piperacillin/Tazobactam 3.375 GM in 0.9 % Sodium Chloride Mini Bag 100 ML IVPB SCH ×3 (01:32→16:59)
[2018-02-05 05:27] LABS: Hemoglobin 10.6 g/dL (12.9-16.9); Immature Granulocytes % 0.5 % (0-4); Red Cell Distribution Width 16.9 % (11.5-14.5)
[2018-02-05 05:28] LABS: Basophils # 0.1 K/mcL (0.0-0.2); Basophils % 1.2 %; Eosinophils # 0.2 K/mcL (0.0-0.6); Eosinophils % 4.1 %; Hematocrit 33.2 % (37.5-50.1); Immature Platelets 2.1 % (1.1-6.1); Lymphocytes # 0.4 K/mcL (0.6-4.6); Mean Corpuscular HGB Conc 31.9 g/dL (31.6-35.5); Mean Corpuscular Hemoglobin 26.1 pg (28.0-33.3); Mean Corpuscular Volume 81.8 fL (83.0-100.0); Mean Platelet Volume 9.9 fL (9.4-12.4); Monocytes # 0.6 K/mcL (0.0-1.3); Monocytes % 13.4 %; Red Blood Count 4.06 M/mcL (4.19-5.50); Segmented Neutrophils % 70.8 %
[2018-02-05 05:31] LABS: BUN/Creatinine Ratio 28 (6-26); Blood Urea Nitrogen 32 mg/dL (6-20); Calcium 8.8 mg/dL (8.6-10.3); Carbon Dioxide 26 mEq/L (23-29); Chloride 103 mEq/L (98-107); Glucose 162 mg/dL (70-105); Osmolality,Calculated 290 (280-300); Potassium 4.6 mEq/L (3.5-5.1); Sodium 135 mEq/L (136-145); eGFR For Non-African Americans > 60 (> 60)
[2018-02-05 05:32] LABS: Albumin 3.3 g/dL (3.5-5.7); Bilirubin,Direct 0.8 mg/dL (0.0-0.2); Bilirubin,Total 2.8 mg/dL (0.3-1.0); Globulin 3.3 g/dL (2.4-3.5); Total Protein 6.6 g/dL (6.4-8.9)
[2018-02-05 05:58] LABS: INR 2.4; Prothrombin Time 26.6 Seconds (9.4-12.1)
[2018-02-05 06:01] LABS: Platelet Count 98 K/mcL (140-400)
[2018-02-05] MEDS: Insulin LISPRO 300 UNITS/3 ML VIAL SQ SCH ×4 (08:18→20:46)
[2018-02-05] MEDS: Silvasorb 44.4 ML TUBE TP SCH (08:24)
--- NOTE | 2018-02-05 08:57 | Internal Med Progress Note ---
<VillatoroFranko S - Last Filed: 02/05/18 11:17> Hospitalist Progress Note - Encounter Date of Encounter: 02/05/18 Time of Encounter: 08:54 - Subjective Interval History: Pt came to the hospital for increasing abd pain and loss of appetite. He stated he didn't have a BM for many days and was having difficutly urinating. The pt wi fe noticed he was much more jaundiced than usual. Pt presented to the ER and was found to have a uti (+) for leukocyte esterase and TNTC WBC/RBC, and nitrates. Urine cx revealed e coli. Pt had CT scan that showed ascites. Today the pt has no complaints. He feels much better. Breathing at baseline, no chest pain. Having 3 BM per day. Able to urinate. Tolerating diet. - nurse reports otherwise, had (+) orthostatics yesterday - Exam Vitals: Temp Pulse Resp BP Pulse Ox 98.3 F 92 18 110/72 97 02/05/18 06:44 02/05/18 06:44 02/05/18 06:44 02/05/18 06:44 02/05/18 06:44 Exam: Pt is AAO x 3, in NAD HEENT: NC/AT , moist mucus membranes Neck: Supple, no JVD Lungs: CTA b/l, no wheezes/crackles Heart: S1S2, irregularly irregular Abd: Soft, NT, no rebound/guarding Ext: no pedal edema Neuro: No focal deficit. - Assessment and Plan (1) SBP (spontaneous bacterial peritonitis) Current Visit: Yes Status: Suspected Assessment and Plan: Pt presented with 5 days of abd pain and tenderness. noticed increased jaundice to skin - had no BM for few days, difficulty urinating and pt c/o loss of appetite - few episodes of vomiting CT on 02/02 - moderate ascites and body wall edema. - no significant biliary dilation - stable splenomegaly On exam pt has no signs of rebound tenderness, guarding or peritoneal signs BUN and hemoglobin have been stable - no s/s of hepatorenal syndrome or hepatic encephalopathy Plan: - continue IV zosyn day 2 - liver ultrasound pending - pt may need paracentesis, will plan to try to tap abd today - stay on high protein diet, ensure TID - avoid liver toxic mediacations - continue cholestyramine - orthostatics ordered - continue rifaximin and lactulose for a total of 3 BM daily - zofran prn nausea (2) UTI (urinary tract infection) Current Visit: Yes Status: Acute Assessment and Plan: Pt had c/o difficulty urinating on presentation UA reveaed (+) blood, (+) nitrites, large leukocyte esterase, TNTC RBC/WBC Urine cx grew E. coli Plan: - continue IV zosyn day 2 - await for final urine cx report for sensitivity (3) CAD (coronary artery disease) Current Visit: No Status: Chronic Assessment and Plan: No chest pain, cont home meds - continue lopressor (4) Afib Current Visit: No Status: Chronic Assessment and Plan: Irregularly irregular - HR 92 - continue Coumadin ad Lopressr (5) Diabetes Current Visit: No Status: Chronic Assessment and Plan: Glucose 162 this morning - continue LDSS - 2U SQ levemir hs (6) COPD (chronic obstructive pulmonary disease) Current Visit: No Status: Chronic Assessment and Plan: No wheezing, cont home meds. - chronic dry cough - guafensin q6hr - spirometry (7) Elevated bilirubin Current Visit: Yes Status: Acute Assessment and Plan: Total bilirubin 3.8 on admission, indirect bilirubin 3.2 - this morning total bilirubin 2.8, indirect 2.0 Most likely due to acute on chronic liver cirrhosis - ALT/AST remain low (8) Diarrhea Current Visit: Yes Status: Acute Assessment and Plan: GI panel negative - see plan above for SBP (9) DVT prophylaxis Current Visit: Yes Status: Acute Assessment and Plan: On coumadin (10) Dehydration Current Visit: Yes Status: Acute Assessment and Plan: Improved. - tolerating PO hydration - d/c IVF (11) Cirrhosis Current Visit: Yes Status: Acute Assessment and Plan: Diagnosed 2014 w/ MARK - pt to f/u outpt with GI at [facility] - ammonia level WNL, no stigmata of ESLD or hepatic encephalopathy - continue rifaxamine, lactulose - avoid hepatotoxic mediacations (12) Hypertension Current Visit: No Status: Chronic Assessment and Plan: On lopressor - continue home med (13) Anxiety and depression Current Visit: No Status: Chronic Assessment and Plan: on paxil - continue home med - Time Spent with Patient Total time spent is greater than 50% in coordination of care (as documented) at patient's floor/unit and/or counseling patient: Internal Medicine: Result - Labs CBC & Chem 7: 02/05/18 04:55 02/05/18 04:55 Labs: Short CBC 02/05/18 Range/Units 04:55 WBC 4.2 L (4.3-11.1) K/mcL Hgb 10.6 L (12.9-16.9) g/dL Hct 33.2 L (37.5-50.1) % Plt Count 98 L (140-400) K/mcL Neutrophils # 3.0 (1.6-8.9) K/mcL BMP 02/05/18 04:55 Sodium 135 L Potassium 4.6 Chloride 103 Carbon Dioxide 26 BUN 32 H Creatinine 1.13 Glucose 162 H Calcium 8.8 Liver Function 02/05/18 Range/Units 04:55 Total Bilirubin 2.8 H (0.3-1.0) mg/dL Direct Bilirubin 0.8 H (0.0-0.2) mg/dL AST 13 (13-39) Units/L ALT 7 (7-52) Units/L Alkaline Phosphatase 80 (34-104) Units/L Albumin 3.3 L (3.5-5.7) g/dL - ABG Interpretation ABG results: PT/INR, D-dimer PT 26.6 Seconds (9.4-12.1) H 02/05/18 04:55 Consult Discharge Plan - Plan Referrals: Dangelo Copeland Jr, MD [Primary Care Provider] - <Ashley Graff - Last Filed: 02/05/18 15:17> Hospitalist Progress Note - Encounter Time of Encounter: 15:05 - Exam Vitals: Temp Pulse Resp BP Pulse Ox 98.2 F 92 14 111/78 100 02/05/18 14:09 02/05/18 14:09 02/05/18 14:09 02/05/18 14:09 02/05/18 14:09 - Assessment and Plan (1) CAD (coronary artery disease) Current Visit: No Status: Chronic (2) Afib Current Visit: No Status: Chronic (3) Diabetes Current Visit: No Status: Chronic (4) COPD (chronic obstructive pulmonary disease) Current Visit: No Status: Chronic (5) UTI (urinary tract infection) Current Visit: Yes Status: Acute (6) Elevated bilirubin Current Visit: Yes Status: Acute (7) Diarrhea Current Visit: Yes Status: Acute (8) SBP (spontaneous bacterial peritonitis) Current Visit: Yes Status: Suspected (9) DVT prophylaxis Current Visit: Yes Status: Acute (10) Dehydration Current Visit: Yes Status: Acute (11) Cirrhosis Current Visit: Yes Status: Acute (12) Hypertension Current Visit: No Status: Chronic (13) Anxiety and depression Current Visit: No Status: Chronic - Time Spent with Patient Total time spent is greater than 50% in coordination of care (as documented) at patient's floor/unit and/or counseling patient: Internal Medicine: Result - Labs CBC & Chem 7: 02/05/18 04:55 02/05/18 04:55 Labs: Short CBC 02/05/18 Range/Units 04:55 WBC 4.2 L (4.3-11.1) K/mcL Hgb 10.6 L (12.9-16.9) g/dL Hct 33.2 L (37.5-50.1) % Plt Count 98 L (140-400) K/mcL Neutrophils # 3.0 (1.6-8.9) K/mcL BMP 02/05/18 04:55 Sodium 135 L Potassium 4.6 Chloride 103 Carbon Dioxide 26 BUN 32 H Creatinine 1.13 Glucose 162 H Calcium 8.8 Liver Function 02/05/18 Range/Units 04:55 Total Bilirubin 2.8 H (0.3-1.0) mg/dL Direct Bilirubin 0.8 H (0.0-0.2) mg/dL AST 13 (13-39) Units/L ALT 7 (7-52) Units/L Alkaline Phosphatase 80 (34-104) Units/L Albumin 3.3 L (3.5-5.7) g/dL - ABG Interpretation ABG results: PT/INR, D-dimer PT 26.6 Seconds (9.4-12.1) H 02/05/18 04:55 - Attending Attestation I saw evaluated and examined this patient and my medical decision-making was reviewed with the Resident Physician, Franko Villatoro. I agree with the documented findings, disposition and treatment plan as described except to any changes set forth below. We independently had [id number] contact with the patient. Patient reports feeling tired and also complains of some sore throat which began after he took his pills this morning. Denies any abdominal pain. No nausea or vomiting. Does have some cough. He reports that this is chronic for him. No fevers or chills reported overnight. Patient was orthostatic with blood pressure decreasing by more than 10 points systolic on standing this morning. On examination, patient is awake and alert. Abdomen is soft, distended. Ascites present. Heart sounds are normal. Patient has bilateral end expiratory wheezing. Acute urinary tract infection: Patient's urine culture growing Escherichia coli. Sensitivities are pending. Possible SBP: Patient has been receiving IV antibiotics. At this point no indication for paracentesis as cultures would remain negative. Patient also denies any complaints of abdominal pain. At time of discharge, will place patient on antibiotics which will treat both UTI and possible SBP. Atrial fibrillation: Rate controlled. On Coumadin. INR is therapeutic. Cirrhosis of the liver with ascites: Continue supportive care. On rifaximin. Will add multivitamins. COPD: Bronchodilators as needed. Diabetes mellitus: Blood sugars slightly elevated. Change sliding scale coverage to medium correctional. Orthostasis and generalized weakness: We will hold antihypertensives for now. Monitor blood pressure closely. Consult PTOT for evaluation <Franko Villatoro S - Last Filed: 02/05/18 11:17> (2) UTI (urinary tract infection) Qualifiers: Urinary tract infection type: acute cystitis Hematuria presence: without hematuria Qualified Code(s): N30.00 - Acute cystitis without hematuria (3) CAD (coronary artery disease) Qualifiers: Coronary Disease-Associated Artery/Lesion type: bypass graft [place] vs. transplanted heart: [place] heart Associated angina: without angina Qualified Code(s): I25.810 - Atherosclerosis of coronary artery bypass graft(s) without angina pectoris (4) Afib Qualifiers: Atrial fibrillation type: chronic Qualified Code(s): I48.2 - Chronic atrial fibrillation (5) Diabetes Qualifiers: Diabetes mellitus type: type 2 Diabetes mellitus mcfp insulin use: with mcfp use Diabetes mellitus complication status: with neurologic complications Diabetes mellitus complication detail: with polyneuropathy Qualified Code(s): E11.42 - Type 2 diabetes mellitus with diabetic polyneuropathy; 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 (6) COPD (chronic obstructive pulmonary disease) Qualifiers: COPD type: unspecified COPD Qualified Code(s): J44.9 - Chronic obstructive pulmonary disease, unspecified (8) Diarrhea Qualifiers: Diarrhea type: unspecified type Qualified Code(s): R19.7 - Diarrhea, unspecified (11) Cirrhosis Qualifiers: Hepatic cirrhosis type: other cirrhosis Qualified Code(s): K74.69 - Other cirrhosis of liver (12) Hypertension Qualifiers: Hypertension type: essential hypertension Qualified Code(s): I10 - Essential (primary) hypertension <Ashley Graff - Last Filed: 02/05/18 15:17> (1) CAD (coronary artery disease) Qualifiers: Coronary Disease-Associated Artery/Lesion type: bypass graft [place] vs. transplanted heart: [place] heart Associated angina: without angina Qualified Code(s): I25.810 - Atherosclerosis of coronary artery bypass graft(s) without angina pectoris (2) Afib Qualifiers: Atrial fibrillation type: chronic Qualified Code(s): I48.2 - Chronic atrial fibrillation (3) Diabetes Qualifiers: Diabetes mellitus type: type 2 Diabetes mellitus truck [employer] insulin use: with mcfp use Diabetes mellitus complication status: with neurologic complications Diabetes mellitus complication detail: with polyneuropathy Qualified Code(s): E11.42 - Type 2 diabetes mellitus with diabetic polyneuropathy; 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 (4) COPD (chronic obstructive pulmonary disease) Qualifiers: COPD type: unspecified COPD Qualified Code(s): J44.9 - Chronic obstructive pulmonary disease, unspecified (5) UTI (urinary tract infection) Qualifiers: Urinary tract infection type: acute cystitis Hematuria presence: without hematuria Qualified Code(s): N30.00 - Acute cystitis without hematuria (7) Diarrhea Qualifiers: Diarrhea type: unspecified type Qualified Code(s): R19.7 - Diarrhea, unspecified (11) Cirrhosis Qualifiers: Hepatic cirrhosis type: other cirrhosis Qualified Code(s): K74.69 - Other cirrhosis of liver (12) Hypertension Qualifiers: Hypertension type: essential hypertension Qualified Code(s): I10 - Essential (primary) hypertension
[2018-02-05] MEDS ORDERED: Chloraseptic Spray 177 ML BOTTLE MM PRN (13:21)
[2018-02-05] MEDS ORDERED: *HR* Warfarin 3 MG TABLET PO ONE (18:00)
[2018-02-05] MEDS: traZODone 50 MG TABLET PO SCH (20:45)
[2018-02-05] MEDS: Insulin DETEMIR 100 UNIT/ML X5UNITS SQ SCH (20:46)
[2018-02-06] MEDS: Piperacillin/Tazobactam 3.375 GM in 0.9 % Sodium Chloride Mini Bag 100 ML IVPB SCH ×2 (01:25→08:04)
[2018-02-06 05:19] LABS: Immature Granulocytes % 0.5 % (0-4); Mean Corpuscular Volume 83.5 fL (83.0-100.0)
[2018-02-06 05:22] LABS: Basophils % 0.9 %; Eosinophils # 0.3 K/mcL (0.0-0.6); Eosinophils % 6.3 %; Hematocrit 32.4 % (37.5-50.1); Hemoglobin 10.1 g/dL (12.9-16.9); Immature Platelets 2.8 % (1.1-6.1); Lymphocytes # 0.7 K/mcL (0.6-4.6); Lymphocytes % 15.9 %; Mean Corpuscular HGB Conc 31.2 g/dL (31.6-35.5); Mean Platelet Volume 9.7 fL (9.4-12.4); Monocytes # 0.7 K/mcL (0.0-1.3); Monocytes % 15.2 %; Neutrophils # 2.6 K/mcL (1.6-8.9); Red Blood Count 3.88 M/mcL (4.19-5.50); Red Cell Distribution Width 16.7 % (11.5-14.5); Segmented Neutrophils % 61.2 %
[2018-02-06 05:28] LABS: INR 2.3; Platelet Count 98 K/mcL (140-400); Prothrombin Time 25.6 Seconds (9.4-12.1)
[2018-02-06 05:44] LABS: BUN/Creatinine Ratio 25 (6-26); Blood Urea Nitrogen 23 mg/dL (6-20); Calcium 8.5 mg/dL (8.6-10.3); Carbon Dioxide 29 mEq/L (23-29); Chloride 104 mEq/L (98-107); Glucose 116 mg/dL (70-105); Osmolality,Calculated 291 (280-300); Potassium 4.6 mEq/L (3.5-5.1); Sodium 138 mEq/L (136-145); eGFR For Non-African Americans > 60 (> 60)
[2018-02-06] MEDS: Insulin LISPRO 300 UNITS/3 ML VIAL SQ SCH ×2 (08:01→11:57)
[2018-02-06] MEDS: Silvasorb 44.4 ML TUBE TP SCH (08:05)
[2018-02-06 10:44] VITALS: BP 93/52
--- NOTE | 2018-02-06 13:43 | Discharge Summary ---
- NOTES TO OUTPATIENT PROVIDER Notes to Outpatient Provider: Patient with history of diabetes, hypertension, atrial fibrillation, cirrhosis from [facility] was hospitalized here with concerns for acute UTI and spontaneous bacterial peritonitis. He was started on treatment with IV antibiotics. His symptoms improved quickly. He has since been recovering well. His urine culture was positive for Escherichia coli. Sensitivities are currently pending but patient has clinically improved and is no longer having any fevers or chills. His leukocytosis has also resolved. While there was initial concern for his BP, paracentesis has not been done. Patient has not had any abdominal pain and thus the likelihood of having his BP is very low. Nevertheless he will be discharged on antibiotics but will treat both UTI and underlying his BP. Patient has been having low blood pressure and positive orthostatics. He takes Lopressor for his A. fib. This has been changed to Cardizem instead. We will need close follow-up as outpatient for further management. Patient did exhibit some aspiration per speech therapy evaluation here and would need continued speech therapy as outpatient. He has also been evaluated by physical therapy and recommended home health and physical therapy which will be arranged at discharge. Patient is clinically stable to be discharged today. Orders not resulted at time of discharge: Pending orders 02/02/18 14:41 Culture,Urine [RM] Stat 02/02/18 17:55 Culture,Blood [BC] Stat 02/07/18 04:00 PT/INR [Prothrombin Time INR] [COAG] AM 0400 02/08/18 04:00 PT/INR [Prothrombin Time INR] [COAG] AM 0400 02/09/18 04:00 PT/INR [Prothrombin Time INR] [COAG] AM 0400 02/10/18 04:00 PT/INR [Prothrombin Time INR] [COAG] AM 0400 Date of Encounter: 02/06/18 Time of Encounter: 13:39 - Discharge Diagnosis (1) UTI (urinary tract infection) Priority: Primary Status: Acute Qualifiers: Urinary tract infection type: acute cystitis Hematuria presence: without hematuria Qualified Code(s): N30.00 - Acute cystitis without hematuria (2) CAD (coronary artery disease) Priority: Secondary Status: Chronic Qualifiers: Coronary Disease-Associated Artery/Lesion type: bypass graft [place] vs. transplanted heart: [place] heart Associated angina: without angina Qualified Code(s): I25.810 - Atherosclerosis of coronary artery bypass graft(s) without angina pectoris (3) Afib Priority: Secondary Status: Chronic Qualifiers: Atrial fibrillation type: chronic Qualified Code(s): I48.2 - Chronic atrial fibrillation (4) SBP (spontaneous bacterial peritonitis) Priority: Secondary Status: Suspected (5) Diabetes Priority: Secondary Status: Chronic Qualifiers: Diabetes mellitus type: type 2 Diabetes mellitus long distance operator insulin use: with long distance operator use Diabetes mellitus complication status: with neurologic complications Diabetes mellitus complication detail: with polyneuropathy Qualified Code(s): E11.42 - Type 2 diabetes mellitus with diabetic polyneuropathy; Z79.4 - longterm (current) use of insulin (6) COPD (chronic obstructive pulmonary disease) Priority: Secondary Status: Chronic Qualifiers: COPD type: unspecified COPD Qualified Code(s): J44.9 - Chronic obstructive pulmonary disease, unspecified (7) Elevated bilirubin Priority: Secondary Status: Acute (8) Diarrhea Priority: Secondary Status: Acute Qualifiers: Diarrhea type: unspecified type Qualified Code(s): R19.7 - Diarrhea, unspecified (9) DVT prophylaxis Priority: Secondary Status: Acute (10) Dehydration Priority: Secondary Status: Acute (11) Cirrhosis Priority: Secondary Status: Chronic Qualifiers: Hepatic cirrhosis type: other cirrhosis Qualified Code(s): K74.69 - Other cirrhosis of liver (12) Hypertension Priority: Secondary Status: Chronic Qualifiers: Hypertension type: essential hypertension Qualified Code(s): I10 - Essential (primary) hypertension (13) Anxiety and depression Priority: Secondary Status: Chronic Hospital course: Mr. aNnce is a 57 year old male Patient with history of diabetes, hypertension, atrial fibrillation, cirrhosis from [facility] was hospitalized here with concerns for acute UTI and spontaneous bacterial peritonitis. He was started on treatment with IV antibiotics. His symptoms improved quickly. He has since been recovering well. His urine culture was positive for Escherichia coli. Sensitivities are currently pending but patient has clinically improved and is no longer having any fevers or chills. His leukocytosis has also resolved. While there was initial concern for his BP, paracentesis has not been done. Patient has not had any abdominal pain and thus the likelihood of having his BP is very low. Nevertheless he will be discharged on antibiotics but will treat both UTI and underlying his BP. Patient has been having low blood pressure and positive orthostatics. He takes Lopressor for his A. fib. This has been changed to Cardizem instead. We will need close follow-up as outpatient for further management. Patient did exhibit some aspiration per speech therapy evaluation here and would need continued speech therapy as outpatient. He has also been evaluated by physical therapy and recommended home health and physical therapy which will be arranged at discharge. Patient is clinically stable to be discharged today. Discharge discussed with: patient - Time Spent with Patient Total time spent providing and/or coordinating discharge services: Greater than 30 minutes (45 min) - Discharge Medications Prescriptions: Diltiazem [Cardizem] 30 mg PO Q8HR #90 tablet Chloraseptic [place] [Chloraseptic] 1 spray MM QID PRN #1 bottle PRN Reason: Sore Throat Ciprofloxacin [Cipro] 500 mg PO BID #10 tablet Silvasorb 1 appl TP DAILY #1 tube Home Medications: Cholestyramine 4 g PO DAILY PRN 08/27/17 [History] Insulin Glargine,Hum.rec.anlog [Lantus Solostar] 30 units SQ HS 08/27/17 [History] Insulin LISPRO [Humalog] 6 - 12 unit SQ TIDWM 08/27/17 [History] Lactulose 30 ml PO TID PRN 08/27/17 [History] PARoxetine HCl [Paroxetine HCl] 20 mg PO QAM 08/27/17 [History] Rifaximin [Xifaxan] 550 mg PO BID 08/27/17 [History] Trazodone HCl 100 mg PO HS 08/27/17 [History] Furosemide [Lasix] 40 mg PO BID PRN 02/02/18 [History] Spironolactone [Aldactone] 100 mg PO DAILY PRN 02/02/18 [History] Chloraseptic [place] [Chloraseptic] 1 spray MM QID PRN #1 bottle 02/06/18 [Rx] Ciprofloxacin [Cipro] 500 mg PO BID #10 tablet 02/06/18 [Rx] Diltiazem [Cardizem] 30 mg PO Q8HR #90 tablet 02/06/18 [Rx] Silvasorb 1 appl TP DAILY #1 tube 02/06/18 [Rx] Warfarin Sodium 3 mg PO DAILY #0 02/06/18 [Rx] Allergies/Adverse Reactions: Allergy/AdvReac Type Severity Reaction Status Date / Time No Known Allergies Allergy Verified 02/02/18 12:48 Date of admission: 02/04/18 18:20 Primary care physician: Dangelo Copeland Jr, MD Consults: 02/02/18 18:50 Consult to Nutrition [CONS] Routine Comment: Consulting Provider: NUTRITION Reason for Dietary Consult: MST Score 02/04/18 10:32 Consult to Wound Care [CONS] Stat Reason for Consult: Patient has an open area with flap of skin to right heel from trauma Call Completed: Yes 02/05/18 13:19 Consult to Occupational Therapy [CONS] Routine Comment: Evaluate, develop and implement POC Reason for Consult: Gen weakness Does patient have active BEDREST order?: No Is patient medically & hemodynamically stable?: Yes Consult to Airplane Dispatch Clerk [CONS] Routine Reason for SW Consult: Discharge Planning 02/05/18 13:20 Consult to Physical Therapy [CONS] Routine Comment: Evaluate, develop and implement POC Reason for Consult: Gen weakness Does patient have active BEDREST order?: No Is patient medically & hemodynamically stable?: Yes 02/05/18 13:21 Consult to Speech Therapy [CONS] Routine Comment: Evaluate, develop and implement POC Reason for Consult: dysphagia Call Completed: No Discharging clinician: Ashley Graff Anticipated date of discharge: 02/06/18 - Constitutional Vitals: Temp Pulse Resp BP Pulse Ox 98.0 F 101 14 93/52 94 02/06/18 10:42 02/06/18 10:42 02/06/18 10:42 02/06/18 10:42 02/06/18 11:53 General appearance: Present: A&O X 3, no acute distress, answers questions appropriately Exam: . - Respiratory Respiratory exam: Present: CTAB. Absent: accessory muscle use, rales, rhonchi, wheezes - Cardiovascular Cardiovascular exam: Present: RRR, +S1, +S2. Absent: diastolic murmur, gallop, rubs, systolic murmur - Extremities Exam Extremities exam: Present: warm, radial pulses palpable and symmetrical. Absent: calf tenderness, cyanotic, pedal edema - Patient Status Disposition: Home Health Service Condition: Good Functional capacity at discharge: independent ambulation Overall status at discharge: patient is progressing back to baseline - Discharge Instructions Instructions: Atrial Fibrillation (DC), Urinary Tract Infection in Men (DC), Diabetes Mellitus Type 2 in Adults (DC), Chronic Obstructive Pulmonary Disease (DC), Chronic Hypertension (DC) Follow Up With: Dangelo Copeland Jr, MD [Primary Care Provider] - 02/08/18 10:30 am (in 1-2 weeks) Forms: ED Satisfaction Letter Additional Instructions: Please follow up with Coumadin clinic to monitor your INR and adjust Coumadin dose. Coumadin dosage should be decreased while taking antibiotics. - Diet and Activity Activity: increase activity as tolerated Diet: diabetic diet, low fat, low cholesterol, low salt diet, other (Advanced soft diet and thin liquids)
--- NOTE | 2018-02-06 13:59 | Physician Discharge Referral ---
Home Health/Hosp Referral Info Transfer to: Home Health Provider in Charge Post Discharge: PCP - Diagnosis (1) UTI (urinary tract infection) Priority: Primary Status: Acute (2) CAD (coronary artery disease) Priority: Secondary Status: Chronic (3) Afib Priority: Secondary Status: Chronic (4) SBP (spontaneous bacterial peritonitis) Priority: Secondary Status: Suspected (5) Diabetes Priority: Secondary Status: Chronic (6) COPD (chronic obstructive pulmonary disease) Priority: Secondary Status: Chronic (7) Elevated bilirubin Priority: Secondary Status: Acute (8) Diarrhea Priority: Secondary Status: Acute (9) DVT prophylaxis Priority: Secondary Status: Acute (10) Dehydration Priority: Secondary Status: Acute (11) Cirrhosis Priority: Secondary Status: Chronic (12) Hypertension Priority: Secondary Status: Chronic (13) Anxiety and depression Priority: Secondary Status: Chronic - Respiratory Orders Smoking Cessation: Smoking cessation has been advised. For more information, call the [place] Tobacco Quit Line at 3-957-MNUU-NOW. - Diet/Nutrition Diet/Nutrition Orders: Cardiac, No Concentrated Sweets (Cardiac diet) - Activity Activity Orders: Walker - Services Needed Following services are medically necessary services: Physical Therapy, Occupational Therapy, Speech Therapy - Transfer Medications Prescriptions: Diltiazem [Cardizem] 30 mg PO Q8HR #90 tablet Chloraseptic [place] [Chloraseptic] 1 spray MM QID PRN #1 bottle PRN Reason: Sore Throat Ciprofloxacin [Cipro] 500 mg PO BID #10 tablet Silvasorb 1 appl TP DAILY #1 tube Home Medications: Cholestyramine 4 g PO DAILY PRN 08/27/17 [History] Insulin Glargine,Hum.rec.anlog [Lantus Solostar] 30 units SQ HS 08/27/17 [History] Insulin LISPRO [Humalog] 6 - 12 unit SQ TIDWM 08/27/17 [History] Lactulose 30 ml PO TID PRN 08/27/17 [History] PARoxetine HCl [Paroxetine HCl] 20 mg PO QAM 08/27/17 [History] Rifaximin [Xifaxan] 550 mg PO BID 08/27/17 [History] Trazodone HCl 100 mg PO HS 08/27/17 [History] Furosemide [Lasix] 40 mg PO BID PRN 02/02/18 [History] Spironolactone [Aldactone] 100 mg PO DAILY PRN 02/02/18 [History] Chloraseptic [place] [Chloraseptic] 1 spray MM QID PRN #1 bottle 02/06/18 [Rx] Ciprofloxacin [Cipro] 500 mg PO BID #10 tablet 02/06/18 [Rx] Diltiazem [Cardizem] 30 mg PO Q8HR #90 tablet 02/06/18 [Rx] Silvasorb 1 appl TP DAILY #1 tube 02/06/18 [Rx] Warfarin Sodium 3 mg PO DAILY #0 02/06/18 [Rx] Allergies/Adverse Reactions: Allergy/AdvReac Type Severity Reaction Status Date / Time No Known Allergies Allergy Verified 02/02/18 12:48 Certification: Further, I certify that my clinical findings support that this patient is homebound (i.e. absences from home require considerable and taxing effort and are for medical reasons or oriental orthodox services or infrequently or short duration when for other reasons) because: Homebound Reason: Patient requires assistance of a person or device to safely leave home Attestation: My signature below is to certify that this patient is under my care and that I, or nurse practitioner, or a physician's marketing administrative assistant working with me, has a [id number] encounter with this patient.
[2018-02-06] MEDS ORDERED: *HR* Warfarin 3 MG TABLET PO ONE (18:00)
--- NOTE | 2018-02-08 18:09 | Electrocardiograph Report ---
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
== END 2018-02-06 15:16 | disposition home health service (06) | DRG 689 ==
LOC: EMEROOARM 12:38 → 3ANU 12:38 → SUATTDRO 02-04 18:20
PROVIDERS: ADMIT Internal Medicine Nephrology; ATTEND Internal Medicine